=== PATIENT | female | born 1970 | race Caucasian/White ===

== ENCOUNTER 2018-09-02 10:33 | Observation (INO) | payer OTHER ==
[~2018-09-02] VITALS: Ht 170.2 cm; Wt 81.2 kg
[2018-09-02] MEDS ORDERED: BENADRYL25 MG PO (10:47)
[2018-09-03] MEDS ORDERED: FAMOTIDINE20 MG PO (09:03)
[2018-09-03] MEDS ORDERED: SUCRALFATE1 GM PO (09:04)
--- NOTE | 2018-09-03 09:16 | EKG ---
[facility] [address] [facility] [place], [place] [address] Signed Normal sinus rhythm Normal ECG No previous ECGs available Confirmed by CANDIE ANDREW MD ([id number]) on 09/03/2018 9:16:04 AM Electronically Signed By: CANDIE ANDREW MD 09/03/18 0916 PATIENT NAME: CAROLINA MONK Electrocardiogram DATE OF : 66 PHYSICIAN: CANDIE ANDREW MD REPORT #: [id number] REPORT IS CONFIDENTIAL AND NOT TO BE RELEASED WITHOUT AUTHORIZATION
== END 2018-09-03 10:12 | disposition home or self-care (01) ==
LOC: ED 10:33 → MS 10:35
PROVIDERS: ADMIT Internal Medicine
DX: R07.89 Other chest pain (principal); K21.9 Gastro-esophageal reflux disease without esophagitis; R10.13 Epigastric pain; G43.909 Migraine, unspecified, not intractable, without status migrainosus; Z88.5 Allergy status to narcotic agent; Z87.891 Personal history of nicotine dependence; Z79.899 Other long term (current) drug therapy; Z82.49 Family history of ischemic heart disease and other diseases of the circulatory system
CPT/HCPCS: 36415; 71045; 75571; 80053; 83690; 84484; 85025; 85379; 93005; 93010; 96361; 96374; 96375; 99285-25; C9113; G0378; J2405; J7030

== ENCOUNTER 2019-01-26 09:03 | Day surgery (SDC) | payer OTHER ==
[~2019-01-26] VITALS: Ht 170.2 cm; Wt 81.7 kg
[~2019-01-26 09:03] MED LIST: BENADRYL25 MG PO; FAMOTIDINE20 MG PO; SUCRALFATE1 GM PO
--- NOTE | 2019-01-26 10:30 | NUR ---
PT IS ALERT, ORIENTED AND SUPPORTED BY HER SIS. IN LAW [place]. THEY BOTH ARE PLEASANT, HAD FEW QUESTIONS AND PT DID REQUEST PRAYER. WILL FOLLOW NEEDED
--- NOTE | 2019-01-26 11:44 | NUR ---
01/26/19 Trinh4 Shannan Iyer 1139-PATIENT ARRIVED TO PACU ON 2L NC AWAKE DROWSY DENIES PAIN OR NAUSEA. RR EVEN ENCOURAGED TO PASS GAS. IVF INFUSING. PATIENT DOZES BACK TO SLEEP.
--- NOTE | 2019-01-26 21:11 | OR ---
[facility] [address] [place], [place] [address] Signed DATE OF OPERATION: 01/26/2019 SURGEON: Park Landon MD PREOPERATIVE DIAGNOSES: 1. Severe odynophagia, progressive. 2. Diarrhea. 3. Recent finding of abnormal gluten enteropathy panel. POSTOPERATIVE DIAGNOSES: 1. Moderately severe duodenitis and antral gastritis. 2. No obvious severe esophagitis, but changes suggestive of eosinophilic esophagitis (felinization of the esophagus). 3. Normal-appearing colon. PROCEDURES PERFORMED: 1. Esophagogastroduodenoscopy with biopsy. 2. Total colonoscopy to cecum with biopsy of cecum and rectum. ANESTHESIA: Intravenous sedation, fentanyl 200 mcg and Versed 10 mg. INDICATION: This 48-year-old white woman is a patient of Dr. Willingham and was urgently seen for rather progressive and severe odynophagia. She has pain upon swallowing to both liquids and solids. She also has significant epigastric pain. She additionally has some diarrhea, but no blood per rectum or hematemesis. She has been taking Prilosec with marginal if any benefit. Notably, she was hospitalized in August 2018, with severe substernal and epigastric pain. A cardiac workup was normal. She was initially treated with Protonix and Carafate, most recently just Protonix, but has severe pain once again. She is admitted to undergo upper endoscopy and colonoscopy to better characterize her problem, understanding risks of bleeding, infection, and perforation. FINDINGS: Upper endoscopy confirmed marked duodenitis but no sign of ulceration. There was some pre-pyloric antral gastritis. The flap valve was reasonably good. There is no sign of stricture. There is no obvious esophagitis grossly, but she did have felinization of the esophagus suggestive of eosinophilic esophagitis. There were blunted villi of the second and bulbar portions of the duodenum. Electronically Signed By: PARK LANDON MD 01/26/192110 PATIENT NAME: CAROLINA MONK OPERATIVE REPORT DATE OF : 66 REPORT #: [id number] PHYSICIAN: PARK LANDON MD PCP: TERESA WILLINGHAM MD REPORT IS CONFIDENTIAL AND NOT TO BE RELEASED WITHOUT AUTHORIZATION [facility] [address] [place], [place] [address] Signed As regard to colonoscopy, the prep was good and complete colonoscopy was undertaken to the cecum. There was no sign of polyps, diverticular formation, colitis, or cancer. Biopsies were taken of the cecum and rectum to assess for occult colitis. DESCRIPTION OF PROCEDURE: The patient was brought to the endoscopy suite and placed in lateral decubitus position after undergoing topical Hurricaine spray hypopharyngeal anesthesia. A bite block was placed. Full cardiopulmonary monitoring was maintained. An Olympus video upper endoscope was passed in the hypopharynx. Vocal cords were normal. Scope was advanced to the esophagus throughout its length, showed no sign of ulceration or esophagitis as had been considered possible. There was no Booker's epithelium. Scope was easily passed into the stomach, which was insufflated. There was some bile in the stomach and mild pre-pyloric antral gastritis but no sign of ulceration. The scope was passed into the duodenum where marked inflammatory changes of the duodenal bulb and second portion were noted. The scope was advanced as far as possible and allow for biopsy of jejunum and withdrawn to allow for more proximal duodenal biopsies. Careful withdrawal of scope to the antrum showed pre-pyloric erosive changes, but no deep ulceration. Biopsies were obtained there. CLOtest was ultimately found to be negative one-half hour following procedure. The scope was retroflexed showing no sign of profound hiatal hernia or anything of that sort. The scope was withdrawn to the distal esophagus where normal esophageal mucosa was reaffirmed. Biopsies were taken. The scope was carefully withdrawn showing no sign of Booker's epithelium or ulcerations. Biopsies were taken of the midesophagus as the appearance was that of a corrugated or feline type esophagus to some degree. Suspicion is thus maintained for possible eosinophilic esophagitis, possibly associated with underlying celiac disease. The scope was removed and plans made for colonoscopy. The table was rotated and additional sedation given. Digital rectal examination was normal. An Olympus video colonoscope was passed in the rectum and manipulated throughout the colon, ultimately into the cecum. The ileocecal valve and appendiceal orifice were normal. Scope was manipulated to allow for biopsy of the cecum. Careful withdrawal of scope in the remaining colon showed no sign of abnormality. Biopsies were then taken of the rectum. Scope was removed. The patient was taken to recovery room in good condition. 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 Gluten free diet will be initiated right away despite awaiting pathology report confirmation regarding the duodenum. Her odynophagia, which has been quite profound was previously well managed Electronically Signed By: PARK LANDON MD 01/26/19 7936 PATIENT NAME: CAROLINA MONK OPERATIVE REPORT DATE OF : 66 REPORT #: [id number] PHYSICIAN: PARK LANDON MD PCP: TERESA WILLINGHAM MD REPORT IS CONFIDENTIAL AND NOT TO BE RELEASED WITHOUT AUTHORIZATION [place] [id number] Signed with Carafate. This will be initiated. She may have eosinophilic esophagitis manifesting not so much as dysphagia but rather pain. We will await biopsies on that basis. If that is found, then budesonide solution may be a consideration. PLAN: She will see us back in the office in about four weeks. She will call Tuesday to get appointment set up. In the meantime, initiate gluten-free diet and restart Carafate slurry. MD SHAILA Kelley/AMANDAL /[id number] cc: Teresa Willingham MD Copies: ~ Electronically Signed By: PARK LANDON MD 01/26/19 2111 PATIENT NAME: CAROLINA MONK OPERATIVE REPORT DATE OF : 66 REPORT #: [id number] PHYSICIAN: PARK LANDON MD PCP: TERESA WILLINGHAM MD REPORT IS CONFIDENTIAL AND NOT TO BE RELEASED WITHOUT AUTHORIZATION
== END 2019-01-26 12:45 | disposition home or self-care (01) ==
LOC: OPS 09:03 → DS 09:03 → OPS 10:45 → DS 11:30 → OPS 12:45
PROVIDERS: Surgery
PROC: 0DBA8ZX Excision of Jejunum, Via Natural or Artificial Opening Endoscopic, Diagnostic (ICD-10-PCS; 2019-01-26)
PROC: 0DBH8ZX Excision of Cecum, Via Natural or Artificial Opening Endoscopic, Diagnostic (ICD-10-PCS; 2019-01-26)
PROC: 0DB38ZX Excision of Lower Esophagus, Via Natural or Artificial Opening Endoscopic, Diagnostic (ICD-10-PCS; 2019-01-26)
PROC: 0DBP8ZX Excision of Rectum, Via Natural or Artificial Opening Endoscopic, Diagnostic (ICD-10-PCS; 2019-01-26)
PROC: 0DB98ZX Excision of Duodenum, Via Natural or Artificial Opening Endoscopic, Diagnostic (ICD-10-PCS; principal; 2019-01-26 10:45)
PROC: 0DB78ZX Excision of Stomach, Pylorus, Via Natural or Artificial Opening Endoscopic, Diagnostic (ICD-10-PCS; 2019-01-26 10:45)
DX: K52.9 Noninfective gastroenteritis and colitis, unspecified (principal); K29.50 Unspecified chronic gastritis without bleeding; K29.80 Duodenitis without bleeding; K21.0 Gastro-esophageal reflux disease with esophagitis; J45.909 Unspecified asthma, uncomplicated; D64.9 Anemia, unspecified; Z88.5 Allergy status to narcotic agent; Z87.891 Personal history of nicotine dependence
CPT/HCPCS: 99153; G0500; J2250; J3010; J7120

== ENCOUNTER 2019-08-16 18:25 | Emergency (ER) | payer OTHER ==
[~2019-08-16] VITALS: Ht 170.2 cm; Wt 74.8 kg
--- OUTSIDE RECORDS SUMMARY | ~2019-08-16 | XMS | Encounter Summary ---
Demographics + + + | Address | [address] | | | [place] [address] | + + + | Home Phone | | + + + | Preferred Language | Unknown | + + + | Marital Status | | + + + | Quaker Affiliation | Unknown | + + + | Race | Unknown | + + + | Ethnic Group | Unknown | + + + Author + + + | Author | [facility] | | | and [place] | + + + | Organization | [facility] | | | and [place] [...] [place] | | | | | [address] | | + + + + + Care Team Providers + +------+ + | Care Wrapper Stemmer Operator Name | Role | Phone | + +------+ + | Ben Valdes DO | PCP | | + +------+ + Reason for Visit Auth/Cert +--------+--------+ + + + + | Status | Reason | Specialty | Diagnoses / | Referred By | Referred To | | | | | Procedures | Contact | Contact | +--------+--------+ + + + + | Closed | | Radiation | | | [facility] | | | | Oncology | | | Radiation | | | | | | | Oncology [address] | | | | | | | [address] | | | | | | | [place], | | | | | | | [place] [address] | | | | | | | Phone: | | | | | | | [phone] | | | | | | | Fax: | | | | | | | [phone] | +--------+--------+ + + + + Encounter Details +--------+ + + + + | Date | Type | Department | Care Team | Description | +--------+ + + + + | 04/23/ | Hospital | [facility] | [facility] | | | 2014 | Encounter | MED CTR RADIATION | MD Barbi [address] | | | | | ONCOLOGY [address] | [place] [address] | | | | | [place], | [address] | | | | | [place] [address] | | | | | | [phone] | | | +--------+ + + + [...]
--- OUTSIDE RECORDS SUMMARY | ~2019-08-16 | XMS | Clinical Summary ---
Demographics + + + | Address | [address] | | | [place] [address] | + + + | Home Phone | | + + + | Preferred Language | Unknown | + + + | Marital Status | | + + + | Taoist Affiliation | Unknown | + + + | Race | Unknown | + + + | Ethnic Group | Unknown | + + + Author + + + | Author | [facility] | | | and [place] | + + + | Organization | [facility] | | | and [place] [...] [place] | | | | | [address] | | + + + + + Care Team Providers + +------+ + | Care Jack Of All Trades Name | Role | Phone | + +------+ + | No, Physician | PCP | Unavailable | + +------+ + Allergies + + + +--------+ + | Active Allergy | Reactions | Severity | Noted | Comments | | | | | Date | | + + + +--------+ + | Codeine | | | | Other reaction(s): | | | | | | Vomiting | + + + +--------+ + Medications + + + +---------+------+------+-------+ | Medication | Sig | Dispensed | Refills | Star | End | Statu | | | | | | t | Date | s | | | | | | Date | | | + + + +---------+------+------+-------+ | fluticasone | 1 spray by Nasal | 15.8 mL | 1 | 01/0 | | Activ | | (FLONASE) 50 | route 2 times daily. | | | 2/20 | | e | | mcg/nasal spray | | | | 19 | | | + + + +---------+------+------+-------+ Active Problems + + + | Problem | Noted Date | + + + | Acute bronchitis | 08/09/2018 | + + + | Acute laryngopharyngitis | 08/09/2018 | + + + | Bursitis of shoulder | 08/09/2018 | + + + | Dysfunction of eustachian tube | 08/09/2018 | + + + | Granulomatosis | 08/09/2018 | + + + | Influenza | 08/09/2018 | + + + | Low back pain | 08/09/2018 | + + + | Maxillary sinusitis | 08/09/2018 | + + + | Menopausal syndrome | 08/09/2018 | + + + | Neoplasm of uncertain behavior of skin of abdomen | 08/09/2018 | + + + | Sprain of anterior cruciate ligament of knee | 08/09/2018 | + + + | Sprain of medial collateral ligament of knee | 08/09/2018 | + + + | Supraspinatus tendinitis | 08/09/2018 | + + + | Tear of medial meniscus of knee | 08/09/2018 | + + + | Tendinitis | 11/11/2011 | + + + | Thyroid nodule | 10/13/2011 | + + + | Abnormal weight gain | 09/13/2011 | + + + | Insomnia | 09/13/2011 | + + + | Stress | 09/13/2011 | + + + | Hip pain | 12/30/2010 | + + + | Lumbar sprain | 12/30/2010 | + + + | Contact dermatitis | 12/07/2010 | + + + | Basal cell carcinoma of skin | 10/15/2010 | + + + | Migraine | 08/26/2010 | + + + | Neck sprain | 08/26/2010 | + + + | Acute serous otitis media | 06/15/2010 | + + + | Sprain of rotator cuff capsule | 06/15/2010 | + + + | Allergic rhinitis due to pollen | 05/26/2010 | + + + | Depressive disorder | 05/26/2010 | + + + | Herpes zoster | 05/26/2010 | + + + | Shoulder pain | 05/09/2010 | + + + Social History + +-------+ +--------+------+ | Tobacco Use | Types | Packs/Day | Years | Date | | | | | Used | | + +-------+ +--------+------+ | Never Smoker | | | | | + +-------+ +--------+------+ + +---+---+---+ | Smokeless Tobacco: | | | | | Never Used | | | | + +---+---+---+ + + + | Sex Assigned at [...] recent travel history available. | + + Last Filed Vital Signs + + + + + | Vital Sign | Reading | Time Taken | Comments | + + + + + | Blood Pressure | 127/80 | 08/09/2018 9:47 AM | | | | | PST | | + + + + + | Pulse | 81 | 08/09/2018 9:47 AM | | | | | PST | | + + + + + | Temperature | 36.4 C (97.5 F) | 08/09/2018 9:47 AM | | | | | PST | | + + + + + | Respiratory Rate | 16 | 08/09/2018 9:47 AM | | | | | PST | | + + + + + | Oxygen Saturation | 99% | 08/09/2018 9:47 AM | | | | | PST | | + + + + + | Inhaled Oxygen | - | - | | | Concentration | | | | + + + + + | Weight | 83.1 kg (183 lb 3.2 | 08/09/2018 9:47 AM | | | | oz) | PST | | + + + + + | Height | 170.2 cm (5' 7") | 08/09/2018 9:47 AM | | | | | PST | | + + + + + | Body Mass Index | 28.69 | 08/09/2018 9:47 AM | | | | | PST | | + + + + + Plan of Treatment + + + + + | Health Maintenance | Due Date | Last Done | Comments | + + + + + | Vaccine: | | | | | Dtap/Tdap/Td (1 - | 0 | | | | Tdap) | | | | + + + + + | Cervical Cancer | | | | | Screening (Pap) | 9 | | | + + + + + | Breast Cancer | | | | | Screening | 4 | | | + + + + + | Colorectal Cancer | | | | | Screening | 9 | | | | (Colonoscopy) | | | | + + + + + | Vaccine: Zoster (1 | | | | | of 2) | 9 | | | + + + + + | Vaccine: Influenza | | | | | (#1) | 9 | | | + + + + + Results Not on filefrom Last 3 Months Insurance + +--------+ +--------+ +---------+------+ | Payer | Benefi | Subscriber | Effect | Phone | Address | Type | | | t Plan | ID | irma | | | | | | / | | Dates | | | | | | Group | | | | | | + +--------+ +--------+ +---------+------+ | [employer] [facility] | PHP | [id number] | 01/07/20 | [phone] | | PPO | | PLAN | PEBB | | 10-Pre | 5 | | | | | PROV | | sent | | | | | | CHOICE | | | | | | + +--------+ +--------+ +---------+------+ | [facility] | PHP | [id number] | 01/07/20 | [phone] | | PPO | | PLAN | PEBB | | 10-Pre | 5 | | | | | STATEW | | sent | | | | | | KEVIN | | | | | | + +--------+ +--------+ +---------+------+ + +--------+ +--------+ + + | Guarantor Name | Accoun | Relation to | Date | Phone | Billing Address | | | t Type | Patient | of | | | | | | | | | | + +--------+ +--------+ + + | Cindy Mitchell | Person | Self | [birth year] | [address] | | | al/Fam | | 1971 | [phone] | [place] [address] | | | [place]oyd | | | 0 (Home) | | | | | | | [phone] | | | | | | | 0 (Work) | | + +--------+ +--------+ + + Advance Directives + + + + + | Type | Date Recorded | Patient | Explanation | | | | Public Safety Dispatcher | | + + + + + | Power of | | | | | Yarn Man | | | | + + + + + | Advance | | | | | Directive | | | | + + + + +
--- OUTSIDE RECORDS SUMMARY | ~2019-08-16 | XMS | Encounter Summary ---
Demographics + + + | Address | [address] | | | [place] [address] | + + + | Home Phone | | + + + | Preferred Language | Unknown | + + + | Marital Status | | + + + | Catholic Affiliation | Unknown | + + + | Race | Unknown | + + + | Ethnic Group | Unknown | + + + Author + + + | Author | [facility] | | | and [place] | + + + | Organization | [facility] | | | and [place] [...] [place] | | | | | [address] | | + + + + + Care Team Providers + +------+ + | Care Chief Internal Auditor Name | Role | Phone | + [...] | | | [facility]Y CL[facility] [address] | [place], [place] | | | | | [address] | [address] | | | | | [place] [address] | | | | | | [phone] | | | +--------+ + + + [...]
--- OUTSIDE RECORDS SUMMARY | ~2019-08-16 | XMS | Encounter Summary ---
Demographics + + + | Address | [address] | | | [place] [address] | + + + | Home Phone | | + + + | Preferred Language | Unknown | + + + | Marital Status | | + + + | Advent Affiliation | Unknown | + + + | Race | Unknown | + + + | Ethnic Group | Unknown | + + + Author + + + | Author | [facility] | | | and [place] | + + + | Organization | [facility] | | | and [...] [place] | | | | | [address] | | + + + + + Care Team Providers + +------+ + | Care Balance Truer Name | Role | Phone | + +------+ + | Ben Valdes DO | PCP | | + +------+ + Encounter Details +--------+ + + + + | Date | Type | Department | Care Team | Description | +--------+ + + + + | 05/13/ | Hospital | [facility] | [facility] | | | 2014 | Encounter | MED CTR RADIATION | MD Barbi [address] | | | | | ONCOLOGY [address] [place], [place] | | | | | [place], | [address] | | | | | [place] [address] | | | | | | [phone] | | | +--------+ + + + [...]
--- OUTSIDE RECORDS SUMMARY | ~2019-08-16 | XMS | Encounter Summary ---
Demographics + + + | Address | [address] | | | [place] [address] | + + + | Home Phone | | + + + | Preferred Language | Unknown | + + + | Marital Status | | + + + | Church Affiliation | Unknown | + + + | Race | Unknown | + + + | Ethnic Group | Unknown | + + + Author + + + | Author | [facility] | | | and [place] | + + + | Organization | [facility] | | | and [...] [place], [place] | | | | | [address] | | + + + + + Care Team Providers + +------+ + | Care Wire Communications Engineer Name | Role | Phone | + +------+ + | Ben Valdes DO | PCP | | + +------+ + Reason for Referral Diagnostic/Screening (Routine) +--------+--------+ + + + + | Status | Reason | Specialty | Diagnoses / | Referred By | Referred To | | | | | Procedures | Contact | Contact | +--------+--------+ + + + + | Closed | | Radiology | Diagnoses | Leon | [address] | | | | | Keloid | [facility] | Jolene Dumont | | | | | Procedures | MD [address] | [place], | | | | | CT Treatment | [address] | [place] [address] | | | | | Plan | [place], | Phone: | | | | | Complex | [place] [address] | [phone] | | | | | | Phone: | Fax: | | | | | | [phone] | [phone] | | | | | | Fax: | | | | | | | [phone] | | +--------+--------+ + + + + Encounter Details +--------+ + + + + | Date | Type | Department | Care Team | Description | +--------+ + + + + | 05/12/ | Orders Only | [facility] | [facility] | Carley (Primary Dx) | | 2014 | | MED CTR RADIATION | MD Barbi [address] | | | | | ONCOLOGY [address] [facility] [place] | | | | | [place], | [address] | | | | | [place] [address] | | | | | | [phone] | | | +--------+ + + + [...] Not on filedocumented as of this encounter Results CT Treatment Plan Complex (05/13/2015 9:44 AM PDT) + + | Specimen | + + | | + + + + + | Narrative | Performed At | + + + | No Radiologist interpretation, please see Chart Review. | [facility] | + + + + +---------+ + + | Performing | Address | City/State/Zipcode | Phone Number | | Organization | | | | + +---------+ + + | [facility] | | | | + +---------+ + + documented in this encounter Visit Diagnoses + + | Diagnosis | + + | Keloid - Primary Keloid scar | + + documented in this encounter"
--- OUTSIDE RECORDS SUMMARY | ~2019-08-16 | XMS | Encounter Summary ---
Demographics + + + | Address | [address] | | | [place] [address] | + + + | Home Phone | | + + + | Preferred Language | Unknown | + + + | Marital Status | | + + + | Episcopal Affiliation | Unknown | + + + | Race | Unknown | + + + | Ethnic Group | Unknown | + + + Author + + + | Author | [facility] | | | and [place] | + + + | Organization | [facility] | | | and [...] [place] | | | | | [address] | | + + + + + Care Team Providers + +------+ + | Care Strategic Planning Consultant Name | Role | Phone | + [...] | | | ONCOLOGY CLINIC [address] | [place], [place] | | | | | [address] | [address] | | | | | [place] [address] | | | | | | [phone] | | | +--------+ + + + [...]
--- OUTSIDE RECORDS SUMMARY | ~2019-08-16 | XMS | Encounter Summary ---
Demographics + + + | Address | [address] | | | [place] [address] | + + + | Home Phone | | + + + | Preferred Language | Unknown | + + + | Marital Status | | + + + | Yazdanism Affiliation | Unknown | + + + | Race | Unknown | + + + | Ethnic Group | Unknown | + + + Author + + + | Author | [facility] | | | and [place] | + + + | Organization | [facility] | | | and [place] | + + + | Address | Unknown | + + + | Phone | Unavailable | + + + Support + + + + + | Name | Relationship | Address | Phone | + + + + + | Jsoe Mitchell | ECON | [address] | | | | | [place] | | | | | [address] | | + + + + + Care Team Providers + +------+ + | Care Manager Pipeline Name | Role | Phone | + +------+ + | Ben Valdes DO | PCP | | + +------+ + Reason for Visit +--------+ + | Reason | Comments | +--------+ + | Other | | +--------+ + Encounter Details +--------+ + + + + | Date | Type | Department | Care Team | Description | +--------+ + + + + | 04/10/ | Telephone | [facility] | [facility] | Other | | 2014 | | MED CTR MEDICAL | MD Barbi [address] | | | | | ONCOLOGY CLINIC [address] | [place], [place] | | | | | [address] | [address] | | | | | [place] [address] | | | | | | [phone] | | | +--------+ + + + [...]
--- OUTSIDE RECORDS SUMMARY | ~2019-08-16 | XMS | Clinical Summary ---
Demographics + + + | Address | [address] | | | [place] [address] | + + + | Home Phone | | + + + | Preferred Language | Unknown | + + + | Marital Status | | + + + | Rastafarian Affiliation | Unknown | + + + | Race | Unknown | + + + | Ethnic Group | Unknown | + + + Author + + + | Author | [facility] [place] [facility] | | | and [place] | + + + | Organization | [facility] [place] [facility] | | | and [place] | [...] [place] | | | | | [address] | | + + + + + Care Team Providers + +------+ + | Care Magistrate Assistant Name | Role | Phone | + [...] | | + +--------+ +--------+ +---------+------+ | [employer] | PHP | [id number] | 01/07/20 | [phone] | | PPO | | PLAN | PEBB | | 10-Pre | 5 | | | | | PROV | | sent | | | | | | CHOICE | | | | | | + +--------+ +--------+ +---------+------+ | [facility] | PHP | [phone] | 01/07/20 | [phone] | | PPO | | PLAN | [...] | 1971 | [phone] | [place] [address] | | | [place] | | | 0 (Home) | | | | | | | [phone] | | | | | | | 0 (Work) | | + +--------+ +--------+ + + Advance Directives + + + + + | Type | Date Recorded | Patient | Explanation | | | | Multimedia Assistant | | + + + + + | Power of | | | | | Manufacturing Technology Analyst | | | | + + + + + | Advance | | | | | Directive | | | | + + + + +
--- OUTSIDE RECORDS SUMMARY | ~2019-08-16 | XMS | Encounter Summary ---
Demographics + + + | Address | [address] | | | [place] [address] | + + + | Home Phone | | + + + | Preferred Language | Unknown | + + + | Marital Status | | + + + | Zoroastrian Affiliation | Unknown | + + + | Race | Unknown | + + + | Ethnic Group | Unknown | + + + Author + + + | Author | [facility] | | | and [place] | + + + | Organization | [facility] | | | and [place] | [...] [place] | | | | | [address] | | + + + + + Care Team Providers + +------+ + | Care Physical Chemistry Professor Name | Role | Phone | [...] [place] | unspecified | | | | [address] | [address] | seasonality, | | | | [phone] | | unspecified trigger; | | | [...] are examples of irritants. Date Last Reviewed: 04/08/201619997991-0709 [employer] [place] [address], [place] [address]. All righ ts reserved. This information is [...] allergies, talk to your doctor or health acute care nursing assistant before using it for a longer time. Ask your doctor or health acute care nursing assistant if you have any questions. Talk to your computer engineering technician regarding the use of this medicine in children. Special care may be needed. Some products have been used for allergies in children as young as 2 years. After 2 months of daily use without a prescription in a child, talk to your computer engineering technician before u sing it for a longer time. Use of this medicine for nasal polyps is not approved in children . What side effects may I notice from receiving this medicine? Side effects that you should report to your doctor or health acute care nursing assistant as soon as p ossible: allergic reactions [...] attention (report to your doctor or health acute care nursing assistant if they continue or are bothersome): burning [...] this medicine? Visit your doctor or health acute care nursing assistant for regular checks on your progress. Some sym ptoms may improve within 12 hours after starting use. Check with your doctor or health acute care nursing assistant if there is no improvement in your [...]
--- OUTSIDE RECORDS SUMMARY | ~2019-08-16 | XMS | Encounter Summary ---
Demographics + + + | Address | [address] | | | [place] [address] | + + + | Home Phone | | + + + | Preferred Language | Unknown | + + + | Marital Status | | + + + | Scientology Affiliation | Unknown | + + + | Race | Unknown | + + + | Ethnic Group | Unknown | + + + Author + + + | Author | [facility] | | | and [place] | + + + | Organization | [facility] | | | and [place] | [...] [place] | | | | | [address] | | + + + + + Care Team Providers + +------+ + | Care Aviation Tactical Readiness Officer Name | Role | Phone | + +------+ + | Ben Valdes DO | PCP | | + +------+ + Encounter Details +--------+ + + + + | Date | Type | Department | Care Team | Description | +--------+ + + + + | 05/13/ | Hospital | [facility] | [facility] | | | 2014 | Encounter | MED CTR RADIATION | MD Barbi [address] | | | | | ONCOLOGY [address] | [address] [place], [place] | | | | | [place], | [address] | | | | | [place] [address] | | | | | | [phone] | | | +--------+ + + + [...]
--- OUTSIDE RECORDS SUMMARY | ~2019-08-16 | XMS | Encounter Summary ---
Demographics + + + | Address | [address] | | | [place] [address] | + + + | Home Phone | | + + + | Preferred Language | Unknown | + + + | Marital Status | | + + + | Protestant Affiliation | Unknown | + + + | Race | Unknown | + + + | Ethnic Group | Unknown | + + + Author + + + | Author | [facility] | | | and [place] | + + + | Organization | [facility] | | | and [...] [place], [place] | | | | | [address] | | + + + + + Care Team Providers + +------+ + | Care Plater Hot Dip Name | Role | Phone | + [...] | Procedures | MD [address] | [place], | | | | | CT Treatment | [address] | [place] [address] | | | | | Plan | [place], | Phone: | | | | | Complex | [place] [address] | [phone] | | | | | | Phone: | Fax: | | | | | | [phone] | [phone] | | | | | | Fax: | | | | | | | [phone] | | +--------+--------+ + + + + [...] | | ONCOLOGY [address] [facility] [place] | | | | | [place], | [address] | | | | | [place] [address] | | | | | | [phone] | | | +--------+ + + + [...]
--- OUTSIDE RECORDS SUMMARY | ~2019-08-16 | XMS | Encounter Summary ---
Demographics + + + | Address | [address] | | | [place] [address] | + + + | Home Phone | | + + + | Preferred Language | Unknown | + + + | Marital Status | | + + + | Shinto Affiliation | Unknown | + + + | Race | Unknown | + + + | Ethnic Group | Unknown | + + + Author + + + | Author | [facility] | | | and [place] | + + + | Organization | [facility] | [...] [place] | | | | | [address] | | + + + + + Care Team Providers + +------+ + | Care Rn Traveling Name | Role | Phone | + [...] [place] | unspecified | | | | [address] | [address] | seasonality, | | | | [phone] | | unspecified trigger; | | | [...] are examples of irritants. Date Last Reviewed: 04/08/201619992395-0311 [employer]. [address] [place] [address], [place] [address]. All righ ts reserved. This information is [...] allergies, talk to your doctor or health ambulatory care nurse before using it for a longer time. Ask your doctor or health ambulatory care nurse if you have any questions. Talk to your agricultural service technician regarding the use of this medicine in children. Special care may be needed. Some products have been used for allergies in children as young as 2 years. After 2 months of daily use without a prescription in a child, talk to your agricultural service technician before u sing it for a longer time. Use of this medicine for nasal polyps is not approved in children . What side effects may I notice from receiving this medicine? Side effects that you should report to your doctor or health ambulatory care nurse as soon as p ossible: [...] attention (report to your doctor or health ambulatory care nurse if they continue or are [...] this medicine? Visit your doctor or health ambulatory care nurse for regular checks on your progress. Some sym ptoms may improve within 12 hours after starting use. Check with your doctor or health ambulatory care nurse if there is no improvement [...] separate problems. First is a cough which ceelstino sanchez is been more chronic and she [...]
--- OUTSIDE RECORDS SUMMARY | ~2019-08-16 | XMS | Encounter Summary ---
Demographics + + + | Address | [address] | | | [place] [address] | + + + | Home Phone | | + + + | Preferred Language | Unknown | + + + | Marital Status | | + + + | Jain Affiliation | Unknown | + + + | Race | Unknown | + + + | Ethnic Group | Unknown | + + + Author + + + | Author | [facility] | | | and [place] | + + + | Organization | [facility] | | | and [place] [...] [place] | | | | | [address] | | + + + + + Care Team Providers + +------+ + | Care Industrial Relations Commissioner Name | Role | Phone | [...] | | | ONCOLOGY CLINIC [address] | [place], [place] | | | | | [address] | [address] | | | | | [place] [address] | | | | | | [phone] | | | +--------+ + + + [...]
--- OUTSIDE RECORDS SUMMARY | ~2019-08-16 | XMS | Encounter Summary ---
Demographics + + + | Address | [address] | | | [place] [address] | + + + | Home Phone | | + + + | Preferred Language | Unknown | + + + | Marital Status | | + + + | Anabaptist Affiliation | Unknown | + + + | Race | Unknown | + + + | Ethnic Group | Unknown | + + + Author + + + | Author | [facility] | | | and [place] | + + + | Organization | [facility] | | | and [...] [place], [place] | | | | | [address] | | + + + + + Care Team Providers + +------+ + | Care Sales Intern Name | Role | Phone | + [...] | Procedures | MD [address] | [place], | | | | | CT Treatment | [address] | [place] [address] | | | | | Plan | [place], | Phone: | | | | | Complex | [place] [address] | [phone] | | | | | | Phone: | Fax: | | | | | | [phone] | [phone] | | | | | | Fax: | | | | | | | [phone] | | +--------+--------+ + + + + [...] + + + + | 05/13/ | [facility] | [facility] | [facility] | [place] | | 2015 | Encounter | MED CTR [address] | MMD [address] | | | | | [place], | [place], [place] | | | | | [place] [address] | [address] | | | | | [phone] | | | +--------+ + + + [...]
--- OUTSIDE RECORDS SUMMARY | ~2019-08-16 | XMS | Encounter Summary ---
Demographics + + + | Address | [address] | | | [place] [address] | + + + | Home Phone | | + + + | Preferred Language | Unknown | + + + | Marital Status | | + + + | Cheondoism Affiliation | Unknown | + + + | Race | Unknown | + + + | Ethnic Group | Unknown | + + + Author + + + | Author | [facility] | | | and [place] | + + + | Organization | [facility] | | | and [place] [...] [place], [place] | | | | | [address] | | + + + + + Care Team Providers + +------+ + | Care Chili Maker Name | Role | Phone | + [...] | Procedures | MD [address] | [place], | | | | | CT Treatment | [address] | [place] [address] | | | | | Plan | [place], | Phone: | | | | | Complex | [place] [address] | [phone] | | | | | | Phone: | Fax: | | | | | | [phone] | [phone] | | | | | | Fax: | | | | | | | [phone] | | +--------+--------+ + + + + [...] + + + + | 05/13/ | [facility] | [facility] | [facility] | [place] | | 2015 | Encounter | MED CTR [address] | M[address] | | | | | [place], | [place], [place] | | | | | [place] [address] | [address] | | | | | [phone] | | | +--------+ + + + [...]
--- OUTSIDE RECORDS SUMMARY | ~2019-08-16 | XMS | Encounter Summary ---
Demographics + + + | Address | [address] | | | [place] [address] | + + + | Home Phone | | + + + | Preferred Language | Unknown | + + + | Marital Status | | + + + | Druze Affiliation | Unknown | + + + | Race | Unknown | + + + | Ethnic Group | Unknown | + + + Author + + + | Author | [facility] | | | and [place] | + + + | Organization | [facility] | [...] [place] | | | | | [address] | | + + + + + Care Team Providers + +------+ + | Care Utility Tech Name | Role | Phone | + [...] | | | | | | [address] | | | | | | | [place], | | | | | | | [place] [address] | | | | | | | Phone: | | | | | | | [phone] | | | | | | | Fax: | | | | | | | [phone] | +--------+--------+ + + + + Encounter Details +--------+ + + + + | Date | Type | Department | Care Team | Description | +--------+ + + + + | 04/23/ | Hospital | [facility] | [facility] | | | 2014 | Encounter | MED CTR RADIATION | MD Barbi [address] | | | | | ONCOLOGY [address] | [place] | | | | | [place], | [id number] | | | | | [place] [address] | | | | | | [phone] | | | +--------+ + + + [...]
--- NOTE | 2019-08-17 07:36 | EKG ---
[facility] [address] [place] [address] Signed Normal sinus rhythm Low voltage QRS Borderline ECG When compared with ECG of 02-SEP-2018 10:37, Nonspecific T wave abnormality now evident in Anterior leads Confirmed by CANDIE ANDREW MD ([id number]) on 08/17/2019 7:36:32 AM Electronically Signed By: CANDIE ANDREW MD 08/17/19 0736 PATIENT NAME: CAROLINA MONK Electrocardiogram DATE OF : 66 PHYSICIAN: CANDIE ANDREW MD REPORT #: [id number] REPORT IS CONFIDENTIAL AND NOT TO BE RELEASED WITHOUT AUTHORIZATION
== END 2019-08-16 21:16 | disposition home or self-care (01) ==
LOC: ED 18:25
DX: R10.9 Unspecified abdominal pain (principal); Z88.5 Allergy status to narcotic agent
CPT/HCPCS: 80053; 81001; 83690; 83735; 85025; 93005; 93010; 96361; 96374; 96375; 99284-25; J2270; J2405; J7030

== ENCOUNTER 2020-01-03 20:20 | Emergency (ER) | payer OTHER ==
[~2020-01-03] VITALS: Ht 170.2 cm; Wt 76.2 kg
--- OUTSIDE RECORDS SUMMARY | ~2020-01-03 | XMS | Encounter Summary ---
Demographics + + + | Address | [address] | | | [place] [address] | + + + | Home Phone | | + + + | Preferred Language | Unknown | + + + | Marital Status | | + + + | Quaker Affiliation | Unknown | + + + | Race | Unknown | + + + | Ethnic Group | Unknown | + + + Author + + + | Author | [facility] | | | and [place] | + + + | Organization | [facility] | | | and [place] | + + + | Address | Unknown | + + + | Phone | Unavailable | + + + Support + + + + + | Name | Relationship | Address | Phone | + + + + + | Jose Mitchell | ECON | [address] | | | | | [place] | | | | | [address] | | + + + + + Care Team Providers + +------+ + | Care Spindle Setter Name | Role | Phone | + +------+ + | Ben Valdes DO | PCP | | + +------+ + Reason for Visit +--------+ + | Reason | Comments | +--------+ + | Other | | +--------+ + Encounter Details +--------+ + + + + | Date | Type | Department | Care Team | Description | +--------+ + + + + | 04/08/ | Telephone | [facility] | [facility] | Other | | 2014 | | MED CTR MEDICAL | MD Barbi [address] | | | | | ONCOLOGY CLINIC [address] | [place], [place] | | | | | [address] | [address] | | | | | [place] [address] | | | | | | [phone] | | | +--------+ + + + + Social History + +-------+ +--------+------+ | Tobacco Use | Types | Packs/Day | Years | Date | | | | | Used | | + +-------+ +--------+------+ | Never Assessed | | | | | + +-------+ +--------+------+ + + + | Sex Assigned at | Date Recorded | | | | + + + | Not on file | | + + + + + + + | Job Start Date | Occupation | Industry | + + + + | Not on file | Not on file | Not on file | + + + + + + + + | Travel History | Travel Start | Travel End | + + + + + + | No recent travel history available. | + + documented as of this encounter Plan of Treatment Not on filedocumented as of this encounter Visit Diagnoses Not on filedocumented in this encounter"
--- OUTSIDE RECORDS SUMMARY | ~2020-01-03 | XMS | Encounter Summary ---
Demographics + + + | Address | [address] | | | [place] [address] | + + + | Home Phone | | + + + | Preferred Language | Unknown | + + + | Marital Status | | + + + | Christian Affiliation | Unknown | + + + | Race | Unknown | + + + | Ethnic Group | Unknown | + + + Author + + + | Author | [facility] | | | and [place] | + + + | Organization | [facility] | | | and [place] | + + + | Address | Unknown | + + + | Phone | Unavailable | + + + Support + + + + + | Name | Relationship | Address | Phone | + + + + + | Jose Mitchell | ECON | [address] | | | | | [place] | | | | | [address] | | + + + + + Care Team Providers + +------+ + | Care Assembler Handbags Name | Role | Phone | + +------+ + | Ben Valdes DO | PCP | | + +------+ + Encounter Details +--------+ + + + + | Date | Type | Department | Care Team | Description | +--------+ + + + + | 05/13/ | Hospital | [facility] | [facility] | | | 2014 | Encounter | MED CTR RADIATION | MD Barbi [address] | | | | | ONCOLOGY [address] | [address] [place], [place] | | | | | [place], | [address] | | | | | [place] [address] | | | | | | [phone] | | | +--------+ + + + [...]
--- OUTSIDE RECORDS SUMMARY | ~2020-01-03 | XMS | Encounter Summary ---
Demographics + + + | Address | [address] | | | [place] [address] | + + + | Home Phone | | + + + | Preferred Language | Unknown | + + + | Marital Status | | + + + | Bahai Affiliation | Unknown | + + + | Race | Unknown | + + + | Ethnic Group | Unknown | + + + Author + + + | Author | [facility] | | | and [place] | + + + | Organization | [facility] | | | and [place]ana [...] [place] | | | | | [address] | | + + + + + Care Team Providers + +------+ + | Care Sourcing Analyst Name | Role | Phone | + +------+ + | No, Physician | PCP | Unavailable | + +------+ + Reason for Visit +--------+ + | Reason | Comments | +--------+ + | Cough | rm 7/ persistant cough x 2 wk, left knee pain | +--------+ + Encounter Details +--------+---------+ + + + | Date | Type | Department | Care Team | Description | +--------+---------+ + + + | 08/09/ | Office | [facility] | Martin Moss, | Cough (Primary Dx); | | 2019 | Visit | CARE [address] | MD [address] | Allergic rhinitis, | | | | [place], [place] | [place], [place] | unspecified | | | | [address] | [address] | seasonality, | | | | [phone] | | unspecified trigger; | | | | | | Acute pain of left | | | | | | knee | +--------+---------+ + + + Social History + +-------+ [...] + + documented as of this encounter Last Filed Vital Signs + + + [...] | | + + + + + documented in this encounter Patient Instructions Patient Instructions Martin Moss MD - 08/09/2018 9:45 AM PST Causes of Nasal Allergies Nasal allergies are most commonly caused by one or more of 4 kinds of allergens: pollen (wh ich causes seasonal allergies), house-dust mites, mold, and animals. Other substances, castellon d irritants, can bother the nose and make allergy symptoms worse. Pollen Plants reproduce by moving tiny grains of pollen from plant to plant. Some pollen is sushant d by bees, and some is blown by the wind. It s the wind-blown pollen that causes nasal all ergies. The amount of pollen in the air varies from season to season. House-dust mites House-dust mites are tiny bugs too small to see. They can live in mattresses, blankets, surya ffed toys, carpets, and curtains. The droppings of these mites are a common indoor cause of nasal allergies. Mold Mold loves dark, damp areas. It tends to grow in bathrooms, basements, refrigerators, and i n the soil of houseplants. Mold reproduces by sending tiny grains called spores into the air . If these spores are breathed in, they can cause a nasal allergic reaction. Animals Pets, such as cats, dogs, birds, horses, and rabbits, are common causes of nasal allergies. Flakes of skin (dander), saliva left on fur when an animal cleans itself, urine in litter b oxes and cages, and feathers can all cause nasal allergies. Irritants make allergies worse Although irritants don t cause nasal allergies, they can make allergy symptoms worse. Cig arette smoke, perfume, aerosol sprays, smoke from wood stoves or fireplaces, car exhaust, an d strong odors are examples of irritants. Date Last Reviewed: 04/08/[id number] [employer]. [address] [place] [address], [place] [address]. All righ ts reserved. This information is not intended as a substitute for professional medical care. Always follow your healthcare professional's instructions. Fluticasone nasal spray Brand Names: Flonase, Flonase Allergy Relief, Flonase Sensimist, XHANCE What is this medicine? FLUTICASONE (floo TIK a sone) is a corticosteroid. This medicine is used to treat the sympt oms of allergies like sneezing, itchy red eyes, and itchy, runny, or stuffy nose. This medic ine is also used to treat nasal polyps. How should I use this medicine? This medicine is for use in the nose. Follow the directions on your product or prescription label. This medicine works best if used at regular intervals. Do not use more often than di rected. Make sure that you are using your nasal spray correctly. After 6 months of daily use for allergies, talk to your doctor or health intensive care nurse before using it for a longer time. Ask your doctor or health intensive care nurse if you have any questions. Talk to your tongue carrier regarding the use of this medicine in children. Special care may be needed. Some products have been used for allergies in children as young as 2 years. After 2 months of daily use without a prescription in a child, talk to your tongue carrier before u sing it for a longer time. Use of this medicine for nasal polyps is not approved in children . What side effects may I notice from receiving this medicine? Side effects that you should report to your doctor or health intensive care nurse as soon as p ossible: allergic reactions like skin rash, itching or hives, swelling of the face, lips, or tong ue changes in vision crusting or sores in the nose nosebleed signs and symptoms of infection like fever or chills; cough; sore throat white patches or sores in the mouth or nose Side effects that usually do not require medical attention (report to your doctor or health intensive care nurse if they continue or are bothersome): burning or irritation inside the nose or throat cough headache unusual taste or smell What may interact with this medicine? certain antibiotics like clarithromycin and telithromycin certain medicines for fungal infections like ketoconazole, itraconazole, and voriconazol e conivaptan nefazodone some medicines for HIV vaccines What if I miss a dose? If you miss a dose, use it as soon as you remember. If it is almost time for your next dose , use only that dose and continue with your regular schedule. Do not use double or extra dos es. Where should I keep my medicine? Keep out of the reach of children. Store at room temperature between 15 and 30 degrees C (59 and 86 degrees F). Avoid exposure to extreme heat, cold, or light. Throw away any unused medicine after the expiration date. What should I tell my health care provider before I take this medicine? They need to know if you have any of these conditions: cataracts glaucoma infection, like tuberculosis, herpes, or fungal infection recent surgery on nose or sinuses taking a corticosteroid by mouth an unusual or allergic reaction to fluticasone, steroids, other medicines, foods, dyes, or preservatives or trying to get breast-feeding What should I watch for while using this medicine? Visit your doctor or health intensive care nurse for regular checks on your progress. Some sym ptoms may improve within 12 hours after starting use. Check with your doctor or health intensive care nurse if there is no improvement in your symptoms after 3 weeks of use. This medicine may increase your risk of getting an infection. Tell your doctor or health ca re professional if you are around anyone with measles or chickenpox, or if you develop sores or blisters that do not heal properly. NOTE:This sheet is a summary. It may not cover all possible information. If you have questi ons about this medicine, talk to your doctor, pharmacist, or health care provider. Copyright 2018 [employer] documented in this encounter Progress Notes Martin Moss MD - 08/09/2018 9:45 AM PSTFormatting of this note might be different fr om the original. Subjective: Patient ID: Cindy Mitchell is a 47 y.o. female.who presents today for Cough (rm 7/ per sistant cough x 2 wk, left knee pain) . HPI The patient is being seen today for 2 separate problems. First is a cough which celestino sanchez is been more chronic and she feels that it's going on worse for about 2 weeks. She has had no fevers. There is been a little tightness in the chest and shortness of breath at nayan es. Denies any history of asthma emphysema or chronic lung problems. She does not smoke. She does have history of allergies which tend to be worse in the summer. She has been aller gy tested in this past but does not recall what the results were. Tense he had some nasal c ongestion have a little discomfort in the ears at times. Has clear nasal discharge. She de nies any sinus pain or earaches this time. She takes Claritin on a regular basis and occasi onally takes Benadryl at nighttime. She's not been on any other treatment for this in the p ast. She has not had vaccine this year. Second problem is left knee pain. She has had surgery for torn meniscus on the right knee in the past but the left has not given her problems. Over the past week she's had problems with pain on the lateral aspect of the left knee. She's had no pops or crepitance that she is felt other than when she first felt the discomfort when raising up from being seated on t he floor. She often sits on the floor with her legs under her. She's had no previous injur y to this knee. There is been no swelling. Patient Active Problem List Diagnosis Abnormal weight gain Acute bronchitis Acute laryngopharyngitis Acute serous otitis media Allergic rhinitis due to pollen Basal cell carcinoma of skin Bursitis of shoulder Contact dermatitis Depressive disorder Dysfunction of eustachian tube Granulomatosis Herpes zoster Hip pain Influenza Insomnia Low back pain Lumbar sprain Maxillary sinusitis Menopausal syndrome Migraine Neck sprain Neoplasm of uncertain behavior of skin of abdomen Shoulder pain Sprain of anterior cruciate ligament of knee Sprain of medial collateral ligament of knee Sprain of rotator cuff capsule Stress Supraspinatus tendinitis Tear of medial meniscus of knee Tendinitis Thyroid nodule No past surgical history on file. Current Outpatient Prescriptions Medication Sig Dispense Refill fluticasone (FLONASE) 50 mcg/nasal spray 1 spray by Nasal route 2 times daily. 15.8 mL 1 No current facility-administered medications for this visit. She reports that she has never smoked. She has never used smokeless tobacco. Allergies Allergen Reactions Codeine Not Noted Other reaction(s): Vomiting Intolerance No active intolerances/contraindications Review of Systems Constitutional: Negative for chills, fever and malaise/fatigue. HENT: Positive for congestion and sore throat. Negative for ear pain and sinus pain. Respiratory: Positive for cough and sputum production. Negative for shortness of breath and wheezing. Cardiovascular: Positive for chest pain. Musculoskeletal: Positive for joint pain. Negative for back pain and falls. Skin: Negative for rash. Endo/Heme/Allergies: Negative. Objective: BP 127/80 | Pulse 81 | Temp 36.4 C (97.5 F) (Temporal) | Resp 16 | Ht 1.702 m (5' 7 ") | Wt 83.1 kg (183 lb 3.2 oz) | SpO2 99% | BMI 28.69 kg/m Physical Exam The patient is alert and appropriate. She does not appear to be acutely ill and has not hutton d any shortness of breath. She speaks in full sentences. The neck is supple with no adenop athy. Oral is with mild erythema of the posterior pharynx no swelling posterior nasal drip or exudates. Ears are with TMs visualized bilaterally with good light reflex and no erythem a or fluid. Face is nontender over the sinuses. Nose is with mildly swollen pink mucous me mbranes and clear discharge bilaterally. Lungs are clear to auscultation with good air move ment and no rales rhonchi or wheezes. Heart is regular rate and rhythm with no murmur or ta chycardia. The left knee is with no deformity and no swelling. There is no effusion in the joint. There is mild tenderness along the superior lateral aspect of the patella. He has normal range of motion of the left knee with no crepitance palpable. There is minimal tende rness over the lateral collateral ligament and there is no snaps or pops with range of motio n. The collateral ligaments are stable to stresses. Shanita's is negative. Mora's sign is negative. No results found for this or any previous visit (from the past 24 hour(s)). Assessment/Plan: Cindy was seen today for cough. Diagnoses and all orders for this visit: Cough Allergic rhinitis, unspecified seasonality, unspecified trigger Acute pain of left knee Other orders - fluticasone (FLONASE) 50 mcg/nasal spray; 1 spray by Nasal route 2 times daily. Cough is most likely due to nasal allergies and does not appear to be an infectious etiolog y at this time. She is to continue to use antihistamines and she is given a prescription fo r Flonase to try 1 spray each nostril twice daily for the next 2 weeks to see if it will hel p. If she develops fevers, colored sputum, appears to be worsening she should return for re check. For the knee I recommend that she not sit on the floor with her under her is that is probab ly putting some stress on the ligaments. There is also possibility she had a partial sublux ation of the patella go along with tenderness at the patella or possibly could have chondrom alacia patella as well. She can take ibuprofen as needed for the discomfort. If she has sn aps pops clicks or the knee is locking up on her she needs to be rechecked and considered fo r referral to orthopedics. Return if symptoms worsen or fail to improve.Electronically signed by MD oscar Calvin 08/09/2018 10:44 AM PSTdocumented in this encounter Plan of Treatment Not on filedocumented as of this encounter Visit Diagnoses + + | Diagnosis | + + | Cough - Primary | + + | Allergic rhinitis, unspecified seasonality, unspecified trigger | + + | Acute pain of left knee | + + documented in this encounter
--- OUTSIDE RECORDS SUMMARY | ~2020-01-03 | XMS | Encounter Summary ---
Demographics + + + | Address | [address] | | | [place] [address] | + + + | Home Phone | | + + + | Preferred Language | Unknown | + + + | Marital Status | | + + + | Temple Affiliation | Unknown | + + + | Race | Unknown | + + + | Ethnic Group | Unknown | + + + Author + + + | Author | [facility] | | | and [place] | + + + | Organization | [facility] | | | and [place] | + + + | Address | Unknown | + + + | Phone | Unavailable | + + + Support + + + + + | Name | Relationship | Address | Phone | + + + + + | Jose Mitchell | ECON | [address] | | | | | [place], [place] | | | | | [address] | | + + + + + Care Team Providers + +------+ + | Care Plasterer Apprentice Name | Role | Phone | + +------+ + | No, Physician | PCP | Unavailable | + +------+ + Encounter Details +--------+ + + + + | Date | Type | Department | Care Team | Description | +--------+ + + + + | 11/12/ | Imaging | [facility] | Provider, | | | 2019 | Exam | [facility] | [address] | | | | | IM[address]ING [address] | [address] | | | | | [address] | [place] [address] | | | | | [place] [address] | | | | | | [phone] | | | +--------+ + + + [...] Not on filedocumented as of this encounter Procedures + +--------+ + + + | Procedure Name | Priori | Date/Time | Associated Diagnosis | Comments | | | ty | | | | + +--------+ + + + | MRI KNEE LEFT WO | Routin | 10/03/2018 | | Results for this | | CONTRAST | e | 12:00 AM | | procedure are in the | | | | PST | | results section. | + +--------+ + + + documented in this encounter Results MRI Knee Left wo Contrast (10/03/2018 12:00 AM PST) + + | Specimen | + + | | + + + + + | Narrative | Performed At | + + + | External films for comparison only | [facility] | | | | | No results will be in the chart. | | + + + + +---------+ + + | Performing | Address | City/State/Zipcode | Phone Number | | Organization | | | | + +---------+ + + | [facility] | | | | + +---------+ + + documented in this encounter Visit Diagnoses Not on filedocumented in this encounter"
--- OUTSIDE RECORDS SUMMARY | ~2020-01-03 | XMS | Encounter Summary ---
Demographics + + + | Address | [address] | | | [place] [address] | + + + | Home Phone | | + + + | Preferred Language | Unknown | + + + | Marital Status | | + + + | Adventism Affiliation | Unknown | + + + | Race | Unknown | + + + | Ethnic Group | Unknown | + + + Author + + + | Author | [facility] | | | and [place] | + + + | Organization | [facility] | | | and [place] [...] [place] | | | | | [address] | | + + + + + Care Team Providers + +------+ + | Care Co Teacher Name | Role | Phone | + +------+ + | Ben Valdse DO | PCP | | + +------+ [...] | | | [facility] [address] | [place], [place] | | | | | [address] | [address] | | | | | [place] [address] | | | | | | [phone] | | | +--------+ + + + [...]
--- OUTSIDE RECORDS SUMMARY | ~2020-01-03 | XMS | Encounter Summary ---
Demographics + + + | Address | [address] | | | [place] [address] | + + + | Home Phone | | + + + | Preferred Language | Unknown | + + + | Marital Status | | + + + | Baptism Affiliation | Unknown | + + + | Race | Unknown | + + + | Ethnic Group | Unknown | + + + Author + + + | Author | [facility] | | | and [place] | + + + | Organization | [facility] | | | and [place] [...] [place], [place] | | | | | [address] | | + + + + + Care Team Providers + +------+ + | Care Security Installation Sales Technician Name | Role | Phone | + [...] | [facility] | [address] | | | | | IM[address] | [address] | | | | | [address] | [place] [address] | | | | | [place] [address] | | | | | | [phone] | | | +--------+ + + + [...] | + +--------+ + + + | XR KNEE LEFT 1 - 2 | Routin | 09/13/2018 | | Results for this | | VW | e | 12:00 AM | | procedure are in the | | | | PST | | results section. | + +--------+ + + + documented in this encounter Results XR Knee Left 1 - 2 Vw (09/13/2018 12:00 AM PST) + + | Specimen [...]
--- OUTSIDE RECORDS SUMMARY | ~2020-01-03 | XMS | Clinical Summary ---
Demographics + + + | Address | [address] | | | [place] [address] | + + + | Home Phone | | + + + | Preferred Language | Unknown | + + + | Marital Status | | + + + | Religion Affiliation | Unknown | + + + | Race | Unknown | + + + | Ethnic Group | Unknown | + + + Author + + + | Author | [facility] | | | and [place] | + + + | Organization | [facility] | | | and [place] [...] [place] | | | | | [address] | | + + + + + Care Team Providers + +------+ + | Care Sour Bleaching Pleater Name | Role | Phone | + [...] + + + + | Vaccine: Zoster (2 | | 12/21/2018, 09/13/2018 | | | of 3) | 9 | | | + + + + + | Vaccine: | | 02/12/2019 | | | Dtap/Tdap/Td (2 - | 9 | | | | Td) | | | | + + + + + | Vaccine: Influenza | Completed | 05/19/2019, 04/29/2015, | | | | | 07/10/2014, Additional history | | | | | exists | | + + + + + [...] +---------+------+ | [facility] | PHP | [phone] | 01/07/20 | [phone] | | PPO | | PLAN | PEBB | | 10-Pre | 5 | | | | | PROV | | sent | | | | | | CHOICE | | | | | | + +--------+ +--------+ +---------+------+ | [facility] | PHP | [phone] | 01/07/20 | [phone] | | PPO | | PLAN | [...] | | al/Fam | | 1971 | [phone] | [place] [address] | | | [place]oyd | | | 0 (Home) | | | | | | | [phone] | | | | | | | 0 (Work) | | + +--------+ +--------+ + + Advance Directives + + + + + | Type | Date Recorded | Patient | Explanation | | | | Surgical Garment Assembler | | + + + + + | Power of | | | | | Certified Genetic Counselor | | | | + + + + + | Advance | | | | | Directive | | | | + + + + +
--- OUTSIDE RECORDS SUMMARY | ~2020-01-03 | XMS | Encounter Summary ---
Demographics + + + | Address | [address] | | | [place] [address] | + + + | Home Phone | | + + + | Preferred Language | Unknown | + + + | Marital Status | | + + + | Yarsanism Affiliation | Unknown | + + + | Race | Unknown | + + + | Ethnic Group | Unknown | + + + Author + + + | Author | [facility] | | | and [place] | + + + | Organization | [facility] | | | and [place] [...] [place] | | | | | [address] | | + + + + + Care Team Providers + +------+ + | Care Wool Mixer Name | Role | Phone | + [...] | | | [facility] [address] | [place], [place] | | | | | [address] | [address] | | | | | [place] [address] | | | | | | [phone] | | | +--------+ + + + [...]
--- OUTSIDE RECORDS SUMMARY | ~2020-01-03 | XMS | Clinical Summary ---
Demographics + + + | Address | [address] | | | [place] [address] | + + + | Home Phone | | + + + | Preferred Language | Unknown | + + + | Marital Status | | + + + | Cheondoism Affiliation | Unknown | + + + | Race | Unknown | + + + | Ethnic Group | Unknown | + + + Author + + + | Author | [facility] | | | and [place] | + + + | Organization | [facility] | | | and [...] [place] | | | | | [address] | | + + + + + Care Team Providers + +------+ + | Care Assembler Adjuster Name | Role | Phone | + [...] +---------+------+ | [facility] | PHP | [phone] | 01/07/20 | [phone] | | PPO | | PLAN | PEBB | | 10-Pre | 5 | | | | | PROV | | sent | | | | | | CHOICE | | | | | | + +--------+ +--------+ +---------+------+ | [facility] | PHP | [phone] | 01/07/20 | [phone] | | PPO | | PLAN | [...] | | al/Fam | | 1971 | [phone] | [place] [address] | | | [place] | | | 0 (Home) | | | | | | | [phone] | | | | | | | 0 (Work) | | + +--------+ +--------+ + + Advance Directives + + + + + | Type | Date Recorded | Patient | Explanation | | | | Travel Counselor [employer] | | + + + + + | Power of | | | | | Phlebotomy Director | | | | + + + + + | Advance | | | | | Directive | | | | + + + + +
--- OUTSIDE RECORDS SUMMARY | ~2020-01-03 | XMS | Encounter Summary ---
Demographics + + + | Address | [address] | | | [place] [address] | + + + | Home Phone | | + + + | Preferred Language | Unknown | + + + | Marital Status | | + + + | Tenriism Affiliation | Unknown | + + + | Race | Unknown | + + + | Ethnic Group | Unknown | + + + Author + + + | Author | [facility] | | | and [place] | + + + | Organization | [facility] | | | and [place] [...] [place] | | | | | [address] | | + + + + + Care Team Providers + +------+ + | Care Facility Service Associate Name | Role | Phone | + +------+ + | Ben Valdes DO | PCP | | + +------+ + Encounter Details +--------+ + + + + | Date | Type | Department | Care Team | Description | +--------+ + + + + | 05/13/ | Hospital | [facility] | [facility] | | | 2014 | Encounter | MED CTR RAD[facility]ATION | MD [address] | | | | | ONCOLOGY [address] [place], [place] | | | | | [place], | [address] | | | | | [place] [address] | | | | | | [phone] | | | +--------+ + + + [...]
--- OUTSIDE RECORDS SUMMARY | ~2020-01-03 | XMS | Encounter Summary ---
Demographics + + + | Address | [address] | | | [place] [address] | + + + | Home Phone | | + + + | Preferred Language | Unknown | + + + | Marital Status | | + + + | Jain Affiliation | Unknown | + + + | Race | Unknown | + + + | Ethnic Group | Unknown | + + + Author + + + | Author | [facility] | | | and [place] | + + + | Organization | [facility] | | | and [...] [place], [place] | | | | | [address] | | + + + + + Care Team Providers + +------+ + | Care Shower Attendant Name | Role | Phone | + [...] | MED CTR EXTERNAL | [address] | | | | | IMAGING [address] | [address] | | | | | [address] | [place] [address] | | | | | [place] [address] | | | | | | [phone] | | | +--------+ + + + [...]
--- OUTSIDE RECORDS SUMMARY | ~2020-01-03 | XMS | Encounter Summary ---
Demographics + + + | Address | [address] | | | [place] [address] | + + + | Home Phone | | + + + | Preferred Language | Unknown | + + + | Marital Status | | + + + | Christianity Affiliation | Unknown | + + + | Race | Unknown | + + + | Ethnic Group | Unknown | + + + Author + + + | Author | [facility] | | | and Lanceana | + + + | Organization | [facility] | | | and [...] [place], [place] | | | | | [address] | | + + + + + Care Team Providers + +------+ + | Care Assistant Commissioner Name | Role | Phone | + [...] | Procedures | MD [address] | [place], | | | | | CT Treatment | [address] | [place] [address] | | | | | Plan | [place], | Phone: | | | | | Complex | [place] [address] | [phone] | | | | | | Phone: | Fax: | | | | | | [phone] | [phone] | | | | | | Fax: | | | | | | | [phone] | | +--------+--------+ + + + + Reason for Visit Auth/Cert +--------+--------+ + + + + | Status | Reason | Specialty | Diagnoses / | Referred By | Referred To | | | | | Procedures | Contact | Contact | +--------+--------+ + + + + | Closed | | | | | | +--------+--------+ + + + + Encounter Details +--------+ + + + + | Date | Type | Department | Care Team | Description | +--------+ + + + + | 05/13/ | [facility] | [facility] | [facility] | Keloid | | 2015 | Encounter | MED CTR CT [address] | MMD [address] | | | | | [place], | [place], [place] | | | | | [place] [address] | [address] | | | | | [phone] | | | +--------+ + + + [...] | + +--------+ + + + | CT TREATMENT PLAN | Routin | 05/13/2015 | Keloid | Results for this | | COMPLEX | e | 9:44 AM | | procedure are in the | | | | PDT | | results section. | + +--------+ + + + documented in this encounter Results CT Treatment Plan Complex [...] | Diagnosis | + + | Keloid Keloid scar | + + documented in this encounter"
--- OUTSIDE RECORDS SUMMARY | ~2020-01-03 | XMS | Encounter Summary ---
Demographics + + + | Address | [address] | | | [place] [address] | + + + | Home Phone | | + + + | Preferred Language | Unknown | + + + | Marital Status | | + + + | Holiness Affiliation | Unknown | + + + | Race | Unknown | + + + | Ethnic Group | Unknown | + + + Author + + + | Author | [facility] | | | and Lanceana | + + + | Organization | [facility] | | | and Lanceana [...] [place] | | | | | [address] | | + + + + + Care Team Providers + +------+ + | Care Infertility Nurse Name | Role | Phone | + [...] | | | | | | [address] | | | | | | | [place], | | | | | | | [place] [address] | | | | | | | Phone: | | | | | | | [phone] | | | | | | | Fax: | | | | | | | [phone] | +--------+--------+ + + + + Encounter Details +--------+ + + + + | Date | Type | Department | Care Team | Description | +--------+ + + + + | 04/23/ | Hospital | [facility] | [facility] | | | 2014 | Encounter | MED CTR RADIATION | MD Barbi [address] | | | | | ONCOLOGY [address] | [place] | | | | | [place], | [id number] | | | | | [place] [address] | | | | | | [phone] | | | +--------+ + + + [...]
--- OUTSIDE RECORDS SUMMARY | ~2020-01-03 | XMS | Encounter Summary ---
Demographics + + + | Address | [address] | | | [place] [address] | + + + | Home Phone | | + + + | Preferred Language | Unknown | + + + | Marital Status | | + + + | Adventism Affiliation | Unknown | + + + | Race | Unknown | + + + | Ethnic Group | Unknown | + + + Author + + + | Author | [facility] | | | and Lanceana | + + + | Organization | [facility] | | | and [...] [place], [place] | | | | | [address] | | + + + + + Care Team Providers + +------+ + | Care Ethylene Plant Operator Name | Role | Phone | [...] | Procedures | MD [address] | [place], | | | | | CT Treatment | [address] | [place] [address] | | | | | Plan | [place], | Phone: | | | | | Complex | [place] [address] | [phone] | | | | | | Phone: | Fax: | | | | | | [phone] | [phone] | | | | | | Fax: | | | | | | | [phone] | | +--------+--------+ + + + + [...] | | ONCOLOGY [address] | [facility] [place] | | | | | [place], | [address] | | | | | [place] [address] | | | | | | [phone] | | | +--------+ + + + [...]
--- OUTSIDE RECORDS SUMMARY | ~2020-01-03 | XMS | Encounter Summary ---
Demographics + + + | Address | [address] | | | [place] [address] | + + + | Home Phone | | + + + | Preferred Language | Unknown | + + + | Marital Status | | + + + | Mu-Ism Affiliation | Unknown | + + + | Race | Unknown | + + + | Ethnic Group | Unknown | + + + Author + + + | Author | [facility] | | | and Lanceana | + + + | Organization | [facility] | | | and Lanceana [...] [place] | | | | | [address] | | + + + + + Care Team Providers + +------+ + | Care Hat Ironer Name | Role | Phone | + [...] | | | ONCOLOGY CLINIC [address] | [place], [place] | | | | | [address] | [address] | | | | | [place] [address] | | | | | | [phone] | | | +--------+ + + + [...]
--- OUTSIDE RECORDS SUMMARY | ~2020-01-03 | XMS | Encounter Summary ---
Demographics + + + | Address | [address] | | | [place] [address] | + + + | Home Phone | | + + + | Preferred Language | Unknown | + + + | Marital Status | | + + + | Caodaism Affiliation | Unknown | + + + | Race | Unknown | + + + | Ethnic Group | Unknown | + + + Author + + + | Author | [facility] | | | and Lanceana | + + + | Organization | [facility] | | | and [...] [place], [place] | | | | | [address] | | + + + + + Care Team Providers + +------+ + | Care Medical Affairs Manager Name | Role | Phone | + [...] | Procedures | MD [address] | [place], | | | | | CT Treatment | [address] | [place] [address] | | | | | Plan | [place], | Phone: | | | | | Complex | [place] [address] | [phone] | | | | | | Phone: | Fax: | | | | | | [phone] | [phone] | | | | | | Fax: | | | | | | | [phone] | | +--------+--------+ + + + + [...] | | ONCOLOGY [address] | [facility] [place] | | | | | [place], | [address] | | | | | [place] [address] | | | | | | [phone] | | | +--------+ + + + [...]
--- OUTSIDE RECORDS SUMMARY | ~2020-01-03 | XMS | Encounter Summary ---
Demographics + + + | Address | [address] | | | [place] [address] | + + + | Home Phone | | + + + | Preferred Language | Unknown | + + + | Marital Status | | + + + | Muslim Affiliation | Unknown | + + + | Race | Unknown | + + + | Ethnic Group | Unknown | + + + Author + + + | Author | [facility] | | | and Lanceana | + + + | Organization | [facility] | | | and [...] [place], [place] | | | | | [address] | | + + + + + Care Team Providers + +------+ + | Care Senior Back End Java Developer Name | Role | Phone | + [...] | MED CTR EXTERNAL | MD [address] | | | | | IMAGING [address] | [address] | | | | | [place] | [place] [address] | | | | | [place] [address] | | | | | | [phone] | | | +--------+ + + + [...]
--- OUTSIDE RECORDS SUMMARY | ~2020-01-03 | XMS | Encounter Summary ---
Demographics + + + | Address | [address] | | | [place] [address] | + + + | Home Phone | | + + + | Preferred Language | Unknown | + + + | Marital Status | | + + + | Evangelical Affiliation | Unknown | + + + | Race | Unknown | + + + | Ethnic Group | Unknown | + + + Author + + + | Author | [facility] | | | and Lanceana | + + + | Organization | [facility] | | | and [...] [place] | | | | | [address] | | + + + + + Care Team Providers + +------+ + | Care Supervisor Brine Name | Role | Phone | + [...] | | | | | | [address] | | | | | | | [place], | | | | | | | [place] [address] | | | | | | | Phone: | | | | | | | [phone] | | | | | | | Fax: | | | | | | | [phone] | +--------+--------+ + + + + Encounter Details +--------+ + + + + | Date | Type | Department | Care Team | Description | +--------+ + + + + | 04/23/ | Hospital | [facility] | [facility] | | | 2014 | Encounter | MED CTR RADIATION | MD Barbi [address] | | | | | ONCOLOGY [address] | [place] | | | | | [place], | [address] | | | | | [place] [address] | | | | | | [phone] | | | +--------+ + + + [...]
--- OUTSIDE RECORDS SUMMARY | ~2020-01-03 | XMS | Encounter Summary ---
Demographics + + + | Address | [address] | | | [place] [address] | + + + | Home Phone | | + + + | Preferred Language | Unknown | + + + | Marital Status | | + + + | Yazidism Affiliation | Unknown | + + + | Race | Unknown | + + + | Ethnic Group | Unknown | + + + Author + + + | Author | [facility] | | | and Lanceana | + + + | Organization | [facility] | | [...] [place], [place] | | | | | [address] | | + + + + + Care Team Providers + +------+ + | Care Crab Butcher Name | Role | Phone | + [...] | Procedures | MD [address] | [place], | | | | | CT Treatment | [address] | [place] [address] | | | | | Plan | [place], | Phone: | | | | | Complex | [place] [address] | [phone] | | | | | | Phone: | Fax: | | | | | | [phone] | [phone] | | | | | | Fax: | | | | | | | [phone] | | +--------+--------+ + + + + [...] + + + + | 05/13/ | [facility] | [facility] | [facility] | Keloid | | 2015 | Encounter | MED CTR CT [address] | MMD [address] | | | | | [place], | [place], [place] | | | | | [place] [address] | [address] | | | | | [phone] | | | +--------+ + + + [...]
--- OUTSIDE RECORDS SUMMARY | ~2020-01-03 | XMS | Encounter Summary ---
Demographics + + + | Address | [address] | | | [place] [address] | + + + | Home Phone | | + + + | Preferred Language | Unknown | + + + | Marital Status | | + + + | Denominational Affiliation | Unknown | + + + | Race | Unknown | + + + | Ethnic Group | Unknown | + + + Author + + + | Author | [facility] | | | and Lanceana | + + + | Organization | [facility] | | | and [...] [place] | | | | | [address] | | + + + + + Care Team Providers + +------+ + | Care Director Of Child Welfare Services Name | Role | Phone | + [...] [place] | unspecified | | | | [address] | [address] | seasonality, | | | | [phone] | | unspecified trigger; | | | [...] are examples of irritants. Date Last Reviewed: 04/08/20161999[address]-[address] [employer] [place] [address], [place] [address]. All righ ts reserved. This information is [...] allergies, talk to your doctor or health healthcare specialist before using it for a longer time. Ask your doctor or health healthcare specialist if you have any questions. Talk to your advance agent regarding the use of this medicine in children. Special care may be needed. Some products have been used for allergies in children as young as 2 years. After 2 months of daily use without a prescription in a child, talk to your advance agent before u sing it for a longer time. Use of this medicine for nasal polyps is not approved in children . What side effects may I notice from receiving this medicine? Side effects that you should report to your doctor or health healthcare specialist as soon as p ossible: allergic reactions [...] attention (report to your doctor or health healthcare specialist if they continue or are bothersome): burning [...] this medicine? Visit your doctor or health healthcare specialist for regular checks on your progress. Some sym ptoms may improve within 12 hours after starting use. Check with your doctor or health healthcare specialist if there is no improvement in your [...]
[~2020-01-03 20:20] MED LIST changes: +ALLEGRA ALLERGY60 MG PO; +TYLENOL EXTRA500 MG PO; +VALACYCLOVIR500 MG PO
[2020-01-03] MEDS ORDERED: VISTARIL25 MG PO (20:48)
[2020-01-03] MEDS ORDERED: PREDNISONE20 MG PO (20:48)
== END 2020-01-03 20:54 | disposition home or self-care (01) ==
LOC: ED 20:20
DX: L29.9 Pruritus, unspecified (principal); Z91.018 Allergy to other foods; Z88.5 Allergy status to narcotic agent
CPT/HCPCS: 99282

== ENCOUNTER 2021-03-28 15:44 | Emergency (ER) | payer OTHER ==
[~2021-03-28] VITALS: Ht 170.2 cm; Wt 78.0 kg
[~2021-03-28 15:44] MED LIST changes: +PREDNISONE20 MG PO; +VISTARIL25 MG PO
[2021-03-28] MEDS ORDERED: HYDROCODON-ACE1 EA11 PO (17:06)
== END 2021-03-28 17:32 | disposition home or self-care (01) ==
LOC: ED 15:44
DX: S73.102A Unspecified sprain of left hip, initial encounter (principal); Z88.5 Allergy status to narcotic agent; Z91.018 Allergy to other foods; Z79.899 Other long term (current) drug therapy; Z79.52 Long term (current) use of systemic steroids; X50.1XXA Overexertion from prolonged static or awkward postures, initial encounter
CPT/HCPCS: 73502; 99283-25; A9270

== ENCOUNTER 2021-05-28 15:59 | Emergency (ER) | payer OTHER ==
[~2021-05-28] VITALS: Ht 170.2 cm; Wt 78.0 kg
[~2021-05-28 15:59] MED LIST changes: +HYDROCODON-ACE1 EA11 PO
[2021-05-28] MEDS ORDERED: PROAIR RESPICL90 MCG INH (16:20)
--- NOTE | 2021-05-28 18:15 | EKG ---
[facility] [address] [place] [address] Signed Normal sinus rhythm Normal ECG When compared with ECG of 16-AUG-2019 20:32, T wave inversion no longer evident in Inferior leads Confirmed by JOSÉ MIGUEL FRIAS MD ([id number]) on 05/28/2021 6:14:56 PM Electronically Signed By: JOSÉ MIGUEL FRIAS MD 05/28/21 1815 PATIENT NAME: ALESHIACAROLINAYING PAGAN Electrocardiogram DATE OF : 66 PHYSICIAN: JOSÉ MIGUEL FRIAS MD REPORT #: [id number] REPORT IS CONFIDENTIAL AND NOT TO BE RELEASED WITHOUT AUTHORIZATION
[2021-05-28] MEDS ORDERED: VENTOLIN HFA18 GM INH (19:19)
[2021-05-28] MEDS ORDERED: PREDNISONE20 MG PO (19:19)
== END 2021-05-28 21:05 | disposition home or self-care (01) ==
LOC: ED 15:59
DX: U07.1 COVID-19 (principal); J45.901 Unspecified asthma with (acute) exacerbation; K90.0 Celiac disease; Z91.018 Allergy to other foods; Z88.5 Allergy status to narcotic agent
CPT/HCPCS: 71045; 80053; 83735; 84484; 85025; 93005; 93010; 94640; 99285-25; C9803; J7512; M0243; Q0244; U0003

== ENCOUNTER 2021-10-06 12:40 | Emergency (ER) | payer OTHER ==
[~2021-10-06] VITALS: Ht 170.2 cm; Wt 78.0 kg
[~2021-10-06 12:40] MED LIST changes: +PROAIR RESPICL90 MCG INH; +VENTOLIN HFA18 GM INH
[2021-10-06] MEDS ORDERED: HYDROCODON-ACE1 EA10 PO (13:18)
[2021-10-06] MEDS ORDERED: NAPROSYN500 MG PO (13:18)
== END 2021-10-06 13:35 | disposition home or self-care (01) ==
LOC: ED 12:40
DX: M25.511 Pain in right shoulder (principal); J45.909 Unspecified asthma, uncomplicated; Z88.5 Allergy status to narcotic agent; Z91.010 Allergy to peanuts; Z98.890 Other specified postprocedural states
CPT/HCPCS: 73030; 96372; 99283-25; A9270; J1885

== ENCOUNTER 2022-07-03 16:02 | Emergency (ER) | payer OTHER ==
[~2022-07-03] VITALS: Ht 170.2 cm; Wt 84.7 kg
[~2022-07-03 16:02] MED LIST changes: +HYDROCODON-ACE1 EA10 PO; +NAPROSYN500 MG PO
[2022-07-03] MEDS ORDERED: PERCOCET 5-3251 EACH PO (19:37)
[2022-07-03] MEDS ORDERED: PREDNISONE20 MG PO (19:37)
--- NOTE | 2022-07-04 07:54 | EKG ---
[facility] [address] [place], [place] [address] Signed Normal sinus rhythm Normal ECG When compared with ECG of 28-MAY-2021 16:06, No significant change was found Confirmed by CANDIE ANDREW MD ([id number]) on 07/04/2022 7:54:24 AM Electronically Signed By: CANDIE ANDREW MD 07/04/22 0754 PATIENT NAME: CAROLINA MONK Electrocardiogram DATE OF : 66 PHYSICIAN: CANDIE ANDREW MD REPORT #: [id number] REPORT IS CONFIDENTIAL AND NOT TO BE RELEASED WITHOUT AUTHORIZATION
== END 2022-07-03 20:18 | disposition home or self-care (01) ==
LOC: ED 16:02
DX: R07.9 Chest pain, unspecified (principal); M54.12 Radiculopathy, cervical region; J45.909 Unspecified asthma, uncomplicated; Z88.5 Allergy status to narcotic agent; Z91.018 Allergy to other foods
CPT/HCPCS: 36415; 71045; 80053; 83690; 83735; 84484; 85025; 85379; 93005; 93010; 96374; 96375; 99285-25; A9270; J1100; J1885

== ENCOUNTER 2022-10-02 07:57 | Emergency (ER) | payer OTHER ==
[~2022-10-02] VITALS: Ht 170.2 cm; Wt 85.0 kg
[~2022-10-02 07:57] MED LIST changes: +PERCOCET 5-3251 EACH PO
--- OUTSIDE RECORDS SUMMARY | 2022-10-02 08:00 | XMS ---
PreManage Notification: CAROLINA MONK Security Release Manager Events 1 event(s) in the past 18 months Most recent security events: Elopement at [facility] 07/03/2022 16:02 - Patient eloped before treatment completed. - Patient with suicidal and/or homicidal ideations eloped. - Patient eloped with IV in place. Details: PATIENT LWBS CRITERIA MET - Group Notification - [facility] CARE PROVIDERS [place] Physician Current PHONE: Unknown Uma has no Care Guidelines for this patient. Luanne VISIT COUNT (12 MO.) 3 [facility] TOTAL 3 NOTE: Visits indicate total known visits. ED/UCC VISIT TRACKING (12 MO.) 10/02/2022 07:58 [facility] [place] TYPE: Emergency COMPLAINT: - HEADACHE 07/03/2022 16:02 [facility] [place] TYPE: Emergency COMPLAINT: - CHEST PAIN DIAGNOSES: - Unspecified asthma, uncomplicated - Allergy status to narcotic agent - Chest pain, unspecified - Radiculopathy, cervical region - Allergy to other foods 10/06/2021 12:41 [facility] [place] TYPE: Emergency COMPLAINT: - POSS DISLOCATED R SHOULDER DIAGNOSES: - Pain in right shoulder - Allergy to peanuts - Unspecified asthma, uncomplicated - Other specified postprocedural states - Allergy status to narcotic agent INPATIENT VISIT TRACKING (12 MO.) No inpatient visits to display in this time frame [email or web address]
[2022-10-02] MEDS ORDERED: IMITREX20 MG NAS (09:33)
[2022-10-02] MEDS ORDERED: CYCLOBENZAPRINE10 MG PO (09:33)
[2022-10-02] MEDS ORDERED: HYDROCODON-ACE1 EA10 PO (18:52)
== END 2022-10-02 09:57 | disposition home or self-care (01) ==
LOC: ED 07:57
DX: R51.9 Headache, unspecified (principal); J45.909 Unspecified asthma, uncomplicated; Z88.5 Allergy status to narcotic agent; Z91.018 Allergy to other foods
CPT/HCPCS: 36415; 70450; 80053; 85025; 96374; 96375; 96376; 99284-25; J1200; J2270; J2765; J7030

== ENCOUNTER 2022-10-02 17:00 | Emergency (ER) | payer OTHER ==
[~2022-10-02] VITALS: Ht 170.2 cm; Wt 85.0 kg
[~2022-10-02 17:00] MED LIST changes: +CYCLOBENZAPRINE10 MG PO; +IMITREX20 MG NAS
--- OUTSIDE RECORDS SUMMARY | 2022-10-02 17:03 | XMS ---
PreManage Notification: CAROLINA MONK Security Model And Mold Maker Events 1 event(s) in the past 18 months Most recent security events: Elopement at [facility] 07/03/2022 16:02 - Patient eloped before treatment completed. - Patient with suicidal and/or homicidal ideations eloped. - Patient eloped with IV in place. Details: PATIENT LWBS CRITERIA MET - [facility] - 2 Visits in 30 Days - [facility] [place] Current PHONE: Unknown Uma has no Care Guidelines for this patient. Luanne VISIT COUNT (12 MO[address] [place] [address] TOTAL 4 NOTE: Visits indicate total known visits. ED/UCC VISIT TRACKING (12 MO.) 10/02/2022 17:00 [facility] [place] TYPE: Emergency COMPLAINT: - HEADACHE 10/02/2022 07:58 [facility] [place] TYPE: Emergency COMPLAINT: - HEADACHE 07/03/2022 16:02 [facility] [place] TYPE: Emergency COMPLAINT: - CHEST PAIN DIAGNOSES: - Radiculopathy, cervical region - Allergy to other foods - Unspecified asthma, uncomplicated - Allergy status to narcotic agent - Chest pain, unspecified 10/06/2021 12:41 [facility] [place] TYPE: Emergency COMPLAINT: - POSS DISLOCATED R SHOULDER DIAGNOSES: - Other specified postprocedural states - Allergy status to narcotic agent - Pain in right shoulder - Allergy to peanuts - Unspecified asthma, uncomplicated INPATIENT VISIT TRACKING (12 MO.) No inpatient visits to display in this time frame [email or web address]
[2022-10-02] MEDS ORDERED: HYDROCODON-ACE1 EA10 PO (18:52)
== END 2022-10-02 19:41 | disposition home or self-care (01) ==
LOC: ED 17:00
DX: S16.1XXA Strain of muscle, fascia and tendon at neck level, initial encounter (principal); R51.9 Headache, unspecified; J45.909 Unspecified asthma, uncomplicated; Z88.5 Allergy status to narcotic agent; Z91.018 Allergy to other foods; Z79.899 Other long term (current) drug therapy; X58.XXXA Exposure to other specified factors, initial encounter
CPT/HCPCS: 70496; 70498; 96361; 96374; 96375; 99284-25; J1170; J1200; J1885; J2405; J2765; J7030; Q9967

== ENCOUNTER 2023-06-15 17:21 | Emergency (ER) | payer OTHER ==
[~2023-06-15] VITALS: Ht 170.2 cm; Wt 85.7 kg
--- OUTSIDE RECORDS SUMMARY | 2023-06-15 17:24 | XMS ---
PreManage Notification: CAROLINA MONK Security Clinical Documentation Developer Events 1 event(s) in the past 18 months Most recent security events: Elopement at [facility] 07/03/2022 16:02 - Patient eloped before treatment completed. - Patient with suicidal and/or homicidal ideations eloped. - Patient eloped with IV in place. Details: PATIENT LWBS CRITERIA MET - Group Notification CARE PROVIDERS [place] Physician Current PHONE: Unknown Uma has no Care Guidelines for this patient. Luanne VISIT COUNT (12 MO.) 4 [facility] TOTAL 4 NOTE: Visits indicate total known visits. ED/UCC VISIT TRACKING (12 MO.) 06/15/2023 17:21 [facility] [place] TYPE: Emergency COMPLAINT: - CHEST PAIN 10/02/2022 17:00 [facility] [place] TYPE: Emergency COMPLAINT: - HEADACHE DIAGNOSES: - Allergy status to narcotic agent - Allergy to other foods - Exposure to other specified factors, initial encounter - Headache, unspecified - Other head of drama (current) drug therapy - Strain of muscle, fascia and tendon at neck level, initial encounter - Unspecified asthma, uncomplicated 10/02/2022 07:58 [facility] [place] TYPE: Emergency COMPLAINT: - HEADACHE DIAGNOSES: - Allergy status to narcotic agent - Allergy to other foods - Headache, unspecified - Unspecified asthma, uncomplicated 07/03/2022 16:02 [facility] [place] TYPE: Emergency COMPLAINT: - CHEST PAIN DIAGNOSES: - Allergy status to narcotic agent - Allergy to other foods - Chest pain, unspecified - Radiculopathy, cervical region - Unspecified asthma, uncomplicated INPATIENT VISIT TRACKING (12 MO.) No inpatient visits to display in this time frame [id number]
[2023-06-15 17:39] LABS: BASOPHILS 0.6 % (0-2); EOSINOPHILS 5.2 % (0-6); HEMOGLOBIN 13.6 g/dL (12.0-18.0); LYMPHOCYTES 33.9 % (24-44); MCV 91.3 fl (81-99); MONOCYTES 6.6 % (0-12); NEUTROPHILS 53.7 % (39-80); PLATELET COUNT 314 K/uL (140-440); RBC 4.38 M/ul (4.3-5.7); RDW 12.5 (10.5-15.0)
[2023-06-15 17:56] LABS: ALBUMIN 3.9 g/dL (3.4-5.0); ALBUMIN/GLOBULIN RATIO 1.22 (1.1-2.4); ANION GAP 12.7 (7-21); BILIRUBIN, TOTAL 0.2 ng/dL (0.2-1.0); BUN/CREATININE RATIO 17.72 (6.0-28.6); CREATININE, SERUM 0.79 mg/dL (0.55-1.02); MAGNESIUM 1.9 mg/dL (1.8-2.4); POTASSIUM 3.7 mmol/L (3.5-5.1); PROTEIN, TOTAL 7.1 g/dL (6.4-8.2)
[2023-06-15 20:37] LABS: BILIRUBIN, URINE NEGATIVE (negative); BLOOD/HGB, URINE NEGATIVE (Negative); KETONE, URINE NEGATIVE (Negative); LEUK ESTERASE, URINE NEGATIVE (negative); NITRITE, URINE NEGATIVE (negative); PH, URINE 6.5 (5-7)
[2023-06-15 21:20] VITALS: BP 137/94
--- NOTE | 2023-06-16 11:55 | EKG ---
[facility] [address] [facility] [facility] [place], [place] [address] Signed Normal sinus rhythm Normal ECG When compared with ECG of 03-JUL-2022 16:10, Questionable change in QRS axis Confirmed by ARLINE FINK MD ([id number]) on 06/16/2023 11:54:54 AM Electronically Signed By: ARLINE FINK 06/16/23 1155 PATIENT NAME: CAROLINA MONK Electrocardiogram DATE OF : 66 PHYSICIAN: ARLINE FINK REPORT #: [id number] REPORT IS CONFIDENTIAL AND NOT TO BE RELEASED WITHOUT AUTHORIZATION
== END 2023-06-15 21:20 | disposition home or self-care (01) ==
LOC: ED 17:21
PROVIDERS: Emergency Medicine; Internal Medicine
DX: B34.9 Viral infection, unspecified (principal); K21.9 Gastro-esophageal reflux disease without esophagitis; Z91.018 Allergy to other foods; Z88.5 Allergy status to narcotic agent
CPT/HCPCS: 36415; 71045; 80053; 81003; 83735; 84484; 85025; 93005; 93010; A9270; J7121

== ENCOUNTER 2024-03-26 11:15 | Observation (INO) | payer OTHER ==
[~2024-03-26] VITALS: Ht 170.2 cm; Wt 85.3 kg
--- OUTSIDE RECORDS SUMMARY | 2024-03-26 11:16 | XMS ---
PreManage Notification: CAROLINA MONK Security Coater Hand Events No recent Security Events currently on file CRITERIA MET - [facility] There are no care providers on record at this time. Uma has no Care Guidelines for this patient. Luanne VISIT COUNT (12 MO.) 2 [facility] TOTAL 2 NOTE: Visits indicate total known visits. ED/C VISIT TRACKING (12 MO.) 03/26/2024 11:16 [facility] [place] TYPE: Emergency COMPLAINT: - CHEST PAIN 06/15/2023 17:21 [facility] [place] TYPE: Emergency COMPLAINT: - CHEST PAIN DIAGNOSES: - Allergy status to narcotic agent - Allergy to other foods - Gastro-esophageal reflux disease without esophagitis - Other chest pain - Viral infection, unspecified INPATIENT VISIT TRACKING (12 MO.) No inpatient visits to display in this time frame [id number]
[2024-03-26] MEDS ORDERED: ASPIRIN 81 MG CHEW PO ONE (11:30)
[2024-03-26] MEDS ORDERED: CLARITIN10 M2 PO (11:30)
[2024-03-26 12:44] LABS: HEMOGLOBIN 13.6 g/dL (12.0-18.0); MCH 29.9 (27-36); MCHC 33.3 g/dl (30-36); MCV 89.9 fl (81-99); RBC 4.56 M/ul (4.3-5.7); RDW 12.7 (10.5-15.0)
[2024-03-26 13:02] LABS: ALBUMIN 3.9 g/dL (3.4-5.0); ALBUMIN/GLOBULIN RATIO 1.18 (1.1-2.4); ALKALINE PHOSPHATASE 135 U/L (46-116); ALT (SGPT) 69 U/L (14-59); ANION GAP 13.1 (7-21); AST (SGOT) 24 U/L (15-37); BILIRUBIN, TOTAL 0.4 ng/dL (0.2-1.0); BUN/CREATININE RATIO 22.36 (6.0-28.6); CALCIUM 9.4 mg/dL (8.5-10.1); CARBON DIOXIDE 30 mmol/L (21-32); CHLORIDE 101 mmol/L (98-107); CREATININE, SERUM 0.76 mg/dL (0.55-1.02); GLOMERULAR FILTRATION RATE,EST 92 mL/min (>60); MAGNESIUM 2.2 mg/dL (1.8-2.4); POTASSIUM 4.1 mmol/L (3.5-5.1); PROTEIN, TOTAL 7.2 g/dL (6.4-8.2); UREA NITROGEN 17 mg/dL (7-18)
[2024-03-26 13:19] LABS: BASOPHILS, MANUAL DIFF 1; EOSINOPHILS, MANUAL DIFF 3; LYMPHOCYTES, MANUAL DIFF 23; MONOCYTES, MANUAL DIFF 8; NEUTROPHILS, MANUAL DIFF 65
[2024-03-26] MEDS ORDERED: LIDOCAINE & ANTACID 35 ML BTL PO ONE (16:00)
[2024-03-26] MEDS ORDERED: HYDROmorphone HCL 1 MG/ML SYR IV ONE (17:30)
[2024-03-26] MEDS ORDERED: PANTOPRAZOLE SODIUM 40 MG/10 ML VIAL IV ONE (19:00)
[2024-03-26] MEDS ORDERED: MORPHINE SULFATE 4 MG/ML VIAL IV PRN ×2 (19:45)
[2024-03-26] MEDS ORDERED: ondansetron HCL 4 MG/2 ML VIAL IV PRN (19:45)
[2024-03-26] MEDS ORDERED: ACETAMINOPHEN 1,000 MG/100 ML VIAL IV PRN (19:45)
[2024-03-26] MEDS ORDERED: D5W 1/2 NS + 20 KCL 1,000 ML IV SCH (19:45)
[2024-03-26] MEDS ORDERED: PROCHLORPERAZINE EDISYLATE 10 MG/2 ML VIAL IV PRN (19:45)
[2024-03-26] MEDS ORDERED: ALBUTEROL SULFATE 0.083% 3 ML VIAL INH PRN (20:00)
--- NOTE | 2024-03-26 20:02 | EKG ---
[facility] [address] [place], [place] [address] Signed Normal sinus rhythm Normal ECG No previous ECGs available mild elevated QTc Confirmed by Sea Gordon ([id number]) on 03/26/2024 8:02:01 PM Electronically Signed By: SEA GORDON MD 03/26/242001 PATIENT NAME: CAROLINA MONK Electrocardiogram DATE OF : 66 PHYSICIAN: SEA GORDON MD REPORT #: [id number] REPORT IS CONFIDENTIAL AND NOT TO BE RELEASED WITHOUT AUTHORIZATION
[2024-03-26 20:43] VITALS: BP 124/82
[2024-03-26] MEDS ORDERED: MELATONIN 3 MG TAB PO PRN (21:00)
--- NOTE | 2024-03-26 21:21 | NUR ---
Arrived to room 115 at 2040 from ER via w/c acompanied by and ER staff. Alert and oriented, cooperative with admit questions and vitals. Oriented to room and procedures, IVF infusing, CPOX on at bedside. in room,
[2024-03-26 21:23] LABS: EOSINOPHILS 0.8 % (0-6); HEMOGLOBIN 13.4 g/dL (12.0-18.0); RDW 12.9 (10.5-15.0)
[2024-03-26 21:25] LABS: BASOPHILS 0.6 % (0-2); HEMATOCRIT 40.4 % (35.0-50.0); MCH 29.9 (27-36); MCHC 33.3 g/dl (30-36); NEUTROPHILS 79.6 % (39-80); PLATELET COUNT 321 K/uL (140-440); RBC 4.49 M/ul (4.3-5.7)
--- NOTE | 2024-03-26 22:06 | NUR ---
ADMISSION ASSESSMENT COMPLETE. IVF INFUSING PER ORDER. PT REPORTS EPIGASTRIC PAIN 02/14. PRN FOR PAIN ADMIN PER EMAR. PT DENIES NAUSEA. ABD SOFT. BOWEL TONES ACTIVE. UP TO BR TO VOID 300 ML YELLOW URINE. GAIT STEADY. BACK TO BED. CPOX IN PLACE. PT ORIENTED TO ROOM AND NURSE CALL LIGHT. DENIES QUESTIONS OR CONCERNS. CALL LIGHT IN REACH.
[2024-03-27] VITALS (8 sets, daily range): BP systolic 102–122; BP diastolic 71–82
[2024-03-27 01:19] LABS: BASOPHILS 0.7 % (0-2); HEMATOCRIT 38.1 % (35.0-50.0); HEMOGLOBIN 12.8 g/dL (12.0-18.0); LYMPHOCYTES 23.9 % (24-44); MCH 30.1 (27-36); MCHC 33.6 g/dl (30-36); MCV 89.8 fl (81-99); MONOCYTES 7.3 % (0-12); NEUTROPHILS 66.1 % (39-80); PLATELET COUNT 296 K/uL (140-440); RBC 4.25 M/ul (4.3-5.7); RDW 12.8 (10.5-15.0)
--- NOTE | 2024-03-27 01:33 | NUR ---
LAB IN ROOM FOR DRAW. VS AND I&O OBTAINED. PT REPORTS EPIGASTRIC PAIN 03/17. PRN FOR PAIN ADMIN PER EMAR. NO C/O NAUSEA. WARM COMPRESS PROVIDED FOR ABD. NO FURTHER NEEDS.
--- NOTE | 2024-03-27 04:32 | NUR ---
PT RESTING IN BED WITH EYES CLOSED. RESPIRATIONS EVEN. CALL LIGHT IN REACH.
--- NOTE | 2024-03-27 05:02 | NUR ---
IV PUMP ALARMING. NEW BAG IVF INFUSING PER ORDER. PT UP TO BR TO VOID. BACK TO BED, ITZ WELL. REPORTS ABD PAIN 01/15. PRN FOR PAIN ADMIN PER EMAR. VS AND I&O OBTAINED. NO FURTHER NEEDS.
[2024-03-27 07:05] LABS: EOSINOPHILS 3.9 % (0-6); HEMATOCRIT 39.5 % (35.0-50.0); LYMPHOCYTES 28.4 % (24-44); MCH 29.8 (27-36); MCHC 32.9 g/dl (30-36); MCV 90.6 fl (81-99); MONOCYTES 8.4 % (0-12); NEUTROPHILS 58.3 % (39-80); PLATELET COUNT 273 K/uL (140-440); RBC 4.36 M/ul (4.3-5.7); RDW 12.9 (10.5-15.0)
--- NOTE | 2024-03-27 07:15 | NUR ---
VERBAL REPORT RECEIVED FROM NOEL DONNELLY. PT AWAKE AND ALERT, DR. MILLER INTO SEE PT.
[2024-03-27 07:16] LABS: ALBUMIN 3.3 g/dL (3.4-5.0); ALBUMIN/GLOBULIN RATIO 1.14 (1.1-2.4); ANION GAP 10.2 (7-21); BILIRUBIN, TOTAL 0.5 ng/dL (0.2-1.0); BUN/CREATININE RATIO 14.66 (6.0-28.6); CALCIUM 8.8 mg/dL (8.5-10.1); CREATININE, SERUM 0.75 mg/dL (0.55-1.02); POTASSIUM 4.2 mmol/L (3.5-5.1); PROTEIN, TOTAL 6.2 g/dL (6.4-8.2)
[2024-03-27] MEDS ORDERED: PANTOPRAZOLE SODIUM 40 MG/10 ML VIAL IV SCH (09:00)
[2024-03-27] MEDS ORDERED: VENTOLIN HFA18 GM INH (09:08)
[2024-03-27] MEDS ORDERED: CLARITIN10 MG PO (09:09)
--- NOTE | 2024-03-27 09:09 | NUR ---
MED REC COMPLETE
--- NOTE | 2024-03-27 09:44 | NUR ---
PT LEAVES UNIT VIA DEVON, ESCORTED BY NOEL SALINAS, TO SURGERY FOR PROCEDURE.
[2024-03-27] MEDS ORDERED: propofoL 200 MG/20 ML VIAL ONE (09:45)
--- NOTE | 2024-03-27 09:58 | CONS ---
[facility] [address], [place] [address] Signed DATE OF CONSULTATION: 03/27/2024 CHIEF COMPLAINT: Epigastric abdominal pain. 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 She is apparently under quite a bit of stress. She was having epigastric abdominal pain and nausea. She is also having some chest pain. She came to emergency room for evaluation. She underwent cardiac protocol and everything came out fine including the troponin and her EKG. She actually underwent a stress test yesterday through the emergency room and did just fine. She then mentioned to the ER doctor that she was having melena at least four times. Consequently, she was admitted to our Internal Medicine Service. I have been asked to see Carolina as a general surgeon on-call for consideration of upper endoscopy. She tells me she has had upper and lower endoscopy in the last several years with Dr. Holm and apparently everything been fine. She cannot recall any polyps or diverticulosis or hemorrhoids. Apparently, she has been diagnosed with celiac disease, but is not overly careful with her diet. She has done well overnight. PAST MEDICAL HISTORY: Celiac disease, asthma, and seasonal allergies. PAST SURGICAL HISTORY: C-sections x3, laparoscopic cholecystectomy in her 20s, hysterectomy with one ovary remaining, a partial left knee surgery, right shoulder surgery, upper and lower endoscopy with Dr. Holm and right knee surgery x2. SOCIAL HISTORY: She does not smoke. She has occasional drink. She had a negative stress test yesterday. Bladimir Mills is her primary care provider. She drives. She is the caregiver for her , Jose, but Jose is her power of banking attorney. She works as a lead for the [employer]. She is a full code. FAMILY HISTORY: Brother has metastatic cancer. REVIEW OF SYSTEMS: She has no metal in her body. ALLERGIES: Codeine, nuts cause anaphylaxis and gluten. Electronically Signed By: TERESA MILLER MD 03/27/24 0958 PATIENT NAME: CAROLINA MONK CONSULTATION DATE OF : 66 REPORT #: [id number] PHYSICIAN: TERESA MILLER MD PCP: BLADIMIR MILLS PAC REPORT IS CONFIDENTIAL AND NOT TO BE RELEASED WITHOUT AUTHORIZATION [facility] [address], [place] [address] Signed MEDICATIONS: None. PHYSICAL EXAMINATION: VITAL SIGNS: Her blood pressure is 119/79, heart rate 78, respiratory rate is 16, temperature is 98.0. She is 96% on room air. She is 5 feet 7 inches tall at 83 kg. Her body mass index 29. GENERAL: Carolina is a 53-year-old female lying supine in semi-recumbent in her hospital bed. Her in the room. She is in no acute distress. LUNGS: Clear to auscultation bilaterally. HEART: Regular rate and rhythm without murmur. ABDOMEN: Soft, nontender. No masses. LABORATORY DATA: Her white blood count 8.3, the hemoglobin is 13.6, it is down to 12.8 with IV fluids. Her platelet count was 321, it is now 296. Her BUN 17, creatinine 0.76, total bilirubin 0.4, AST 24, ALT slightly up at 69, alkaline phosphatase is slightly up at 135. Albumin is 3.9. Lipase less than 6. Troponin less than 4.0. EKG done in the ER. RADIOGRAPHIC STUDIES: A chest x-ray was unremarkable. A CT scan of the chest, abdomen and pelvis also negative. ASSESSMENT AND PLAN: Carolina is a 53-year-old female, who presents with what sounds like epigastric abdominal pain may be some lower chest pain with some nausea and melena. She has been admitted to the Internal Medicine Service. I have been asked to help with an upper endoscopy to rule out gastritis and/or peptic ulcer disease. I have reviewed this with Carolina in detail. She is very familiar with endoscopy. There is risk including, but not limited to gas bloating, crampy abdominal pain, bleeding, perforation requiring surgery, and misdiagnosis. More than likely, we will have an anesthesia provider to help us in this acute situation. She and her expressed understanding would like to proceed later this morning. Teresa Miller MD ALB/MODL /[id number] Electronically Signed By: TERESA MILLER MD 03/27/24 0958 PATIENT NAME: CAROLINA MONK CONSULTATION DATE OF : 66 REPORT #: [id number] PHYSICIAN: TERESA MILLER MD PCP: BLADIMIR MILLS [facility] REPORT IS CONFIDENTIAL AND NOT TO BE RELEASED WITHOUT AUTHORIZATION [address] [place] [address] Signed cc: Teresa Miller MD Chart Copies: TERESA MILLER MD ~ Electronically Signed By: TERESA MILLER MD 03/27/24 0958 PATIENT NAME: ALESHIACAROLINA PAGAN CONSULTATION DATE OF : 66 REPORT #: [id number] PHYSICIAN: TERESA MILLER MD PCP: BLADIMIR MILLS PAC REPORT IS CONFIDENTIAL AND NOT TO BE RELEASED WITHOUT AUTHORIZATION
--- NOTE | 2024-03-27 10:35 | NUR ---
Attempted to see pt, she has not returned from EGD at this time.
--- NOTE | 2024-03-27 10:37 | NUR ---
03/27/24 Clarisse Mills 1030 PT TO PACU ORAL AIRWAY IN PLACE O2 VIA MASK FOGGING NOTED IN MASK.
--- NOTE | 2024-03-27 11:15 | NUR ---
PT ARRIVES BACK TO MED-SURG ROOM 115 VIA GURNEY. PT SCOOTS SELF ONTO BED, TOLERATES THIS WELL. PT DROWSY, EASILY ROUSES TO VERBAL STIMULI. DENIES PAIN OR NAUSEA AT THIS TIME. VSS. SPOUSE AT BEDSIDE. CALL LIGHT IN REACH. PT REORIENTED TO ROOM.
[2024-03-27] MEDS ORDERED: FAMOTIDINE40 MG PO (11:27)
[2024-03-27] MEDS ORDERED: PHARMACY RENAL DOSE ADJUSTMENT 1 DOSE MISC PO SCH (12:00)
--- NOTE | 2024-03-27 12:14 | NUR ---
PT TOLERATED JUICE WELL, DENIES NAUSEA. LUNCH TRAY IN ROOM, PT EATS. DISCUSSED DISCHARGE PLAN WITH PT AND SPOUSE, BOTH VERBLIZE UNDERSTANDING.
[2024-03-27 13:09] LABS: BASOPHILS 0.7 % (0-2); EOSINOPHILS 2.1 % (0-6); HEMATOCRIT 39.4 % (35.0-50.0); LYMPHOCYTES 21.7 % (24-44); MONOCYTES 5.9 % (0-12); NEUTROPHILS 69.6 % (39-80); PLATELET COUNT 306 K/uL (140-440); RBC 4.34 M/ul (4.3-5.7)
--- NOTE | 2024-03-27 13:10 | NUR ---
IV REMOVED, TIP INTACT, GAUZE AND COBAN DRESSING APPLIED TO SITE, PT TOLERATED WELL. PT DENEIS NAUSEA AT THIS, REPORTS PAIN TOLERABLE. VSS. PT DRESSES SELF. DISCUSSED DISCHARGE INSTRUCTIONS WITH PT AND SPOUSE, BOTH VERBALIZE UNDERSTANDING. PT LEAVES UNIT VIA WHEELCHAIR ESCORTED BY THIS RN TO PRIVATE CAR DRIVEN BY SPOUSE.
--- NOTE | 2024-03-27 14:30 | STRESS ---
[facility] [address] [place] [address] Signed DATE OF STUDY: PROCEDURE: EKG stress test SUMMARY REPORT: The patient was stressed according to Garrett protocol, achieved a work level of 7.0 METS. Resting heart rate was 77 beats per minute. Resting blood pressure 124/79 mmHg. Resting EKG showed normal sinus rhythm, otherwise within normal limits. The patient exercised only 6 minutes. Heart rate increased to 148 beats per minute representing 89% of maximal age predicted heart rate. Blood pressure increased to 154/91 mmHg. There was nonlimiting chest pain reported. No ischemic EKG changes were noted. CONCLUSION: 1. This is a maximal asymptomatic exercise EKG stress test with borderline average functional status. 2. No ischemic EKG changes. 3. Nonlimiting chest pain. 4. Intermediate risk stress test based on nonlimiting chest pain with Goff score of +2. Prosper Cerda MD MA/MODL /[id number] PATIENT NAME: CAROLINA MONK Stress test DATE OF : 66 PHYSICIAN: PROSPER CERDA MD REPORT #: [id number] REPORT IS CONFIDENTIAL AND NOT TO BE RELEASED WITHOUT AUTHORIZATION
--- NOTE | 2024-03-27 16:06 | OR ---
[facility] [address] [place], [place] [address] Signed DATE OF OPERATION: 03/27/2024 SURGEON: Teresa Miller MD PREOPERATIVE DIAGNOSES: 1. Epigastric abdominal pain. 2. Nausea. 3. Melena. 4. Celiac disease. POSTOPERATIVE DIAGNOSES: 1. Unremarkable upper endoscopy. 2. GE junction at 36 cm. PROCEDURE: EGD with CLOtest and biopsy of the duodenum, pyloric bulb and antrum. ESTIMATED BLOOD LOSS: None. INDICATIONS: Carolina is a 53-year-old female, who came into the emergency room with what was initially thought to be chest pain. It may actually be epigastric abdominal pain. Apparently, she has had some nausea and melena as well. Her cardiac evaluation was negative. She even had a stress test yesterday through the emergency room and that was negative. When she told the ER doctor about her melena, it was realized that maybe she was having an upper GI bleed. 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 Apparently, she has been under quite a bit of stress. The hemoglobin was good at 13.6. EKG and troponin levels all negative. Chest x-ray negative. CT scan of the chest, abdomen and pelvis all negative. She was admitted to the Internal Medicine service with respect to the above. I have been asked to see her as a local general surgeon on-call. She has been through multiple colonoscopies, in fact I just did a colonoscopy for her earlier this year. There were no significant changes. She has been through multiple upper and lower endoscopies with Dr. Holm. She was told she had celiac disease. She is fairly conscious of her gluten free diet. Otherwise, she seems to be fairly healthy. I saw her this morning here in the hospital. She is doing well. I reviewed the above findings with her. I gave her a brochure on upper endoscopy. We had reviewed the nature of the test. She understands there is risk including, but not limited to gas bloating, crampy abdominal pain, bleeding, perforation requiring surgery, and missed diagnosis. Given her acute Electronically Signed By: TERESA MILLER MD 03/27/24 1606 PATIENT NAME: CAROLINA MONK OPERATIVE REPORT DATE OF : 66 REPORT #: [id number] PHYSICIAN: TERESA MILLER MD PCP: BLADIMIR MILLS PAC REPORT IS CONFIDENTIAL AND NOT TO BE RELEASED WITHOUT AUTHORIZATION [facility] [address] [place] [id number] Signed situation, we did ask for monitored anesthesia care with propofol infusion and the potential for airway protection. She had expressed understanding, wished to proceed. PROCEDURE IN DETAIL: Carolina was taken into the endoscopy suite and placed in the supine semi-recumbent position. She was given monitored anesthesia care with propofol infusion per our nurse side piece coverer. A bite block was utilized for the case. The posterior oropharynx was anesthetized with lidocaine spray. The adult gastroscope was introduced and advanced out into the duodenum under direct visualization without difficulty. She had typical clean dark bilious fluid in the duodenum and part of her fundus. We saw no obvious abnormalities to the duodenal mucosa. We went ahead and took a biopsy from the duodenum because of history of celiac disease as well as her recent symptoms. We took an additional biopsy from the pyloric bulb and the antrum as well. We took a biopsy of the antrum also for CLOtest. There were no ulcerations in her pyloric bulb or stomach. Really no gastritis. Upon retroflexion of the scope, she had no additional pathology up around the cardia. We saw no hiatal hernia. The scope was withdrawn up through the area of the cardia and there was no gastric or esophageal varices. There is no stricture. The Z-line is more or less intact. No Booker's mucosa, no distal esophagitis. The middle and upper esophagus were unremarkable. After this, the gas was suctioned out and the gastroscope removed. Carolina tolerated the procedure quite well. RECOMMENDATIONS: Carolina will be returning to her room and started on clear liquid diet. Teresa Miller MD ALB/MODL /[id number] cc: MD Bladimir Dee PA-C Electronically Signed By: TERESA MILLER MD 03/27/24 1606 PATIENT NAME: CAROLINA MONK OPERATIVE REPORT DATE OF : 66 REPORT #: [id number] PHYSICIAN: TERESA MILLER MD PCP: BLADIMIR MILLS REPORT IS CONFIDENTIAL AND NOT TO BE RELEASED WITHOUT AUTHORIZATION [address] [address] Signed Copies: TERESA MILLER MD ~ Electronically Signed By: TERESA MILLER MD 03/27/24 1606 PATIENT NAME: CAROLINA MONK OPERATIVE REPORT DATE OF : 66 REPORT #: [id number] PHYSICIAN: TERESA MILLER MD PCP: BLADIMIR MILLS PAC REPORT IS CONFIDENTIAL AND NOT TO BE RELEASED WITHOUT AUTHORIZATION
[2024-03-29 06:39] LABS: MYCOPHENOLIC ACID GLUCURONIDE <5.0 ug/mL (35.0-100.0); MYCOPHENOLIC ACID HPLC-MS/MS <0.5 ug/mL (1.0-3.5)
--- NOTE | 2024-03-30 12:21 | PATH ---
[facility] [address] [facility] [place], [place] [address] Signed SPECIMEN(S): A DUODENAL BIOPSY SPECIMEN(S): B PYLORIC BULB BIOPSY SPECIMEN(S): C ANTRUM BIOPSY SPECIMEN SOURCE: A. DUODENAL BIOPSY B. PYLORIC BULB BIOPSY C. ANTRUM BIOPSY CLINICAL HISTORY: Melena; history of celiac disease. FINAL PATHOLOGIC DIAGNOSIS: A. Duodenum, biopsy: - Duodenal mucosa with increased intraepithelial lymphocytes and preserved villous architecture, see comment B. Pyloric bulb, biopsy: - Duodenal mucosa with increased intraepithelial lymphocytes and preserved villous architecture, see comment C. Stomach, antrum, biopsy: - Gastric antral mucosa with no significant pathologic changes - Negative for Helicobacter pylori with HE stains COMMENT: For parts A and B, these findings are nonspecific and have been described in association with a variety of conditions including mild celiac disease, other food sensitivities, certain infections (includingHelicobactergastritis), certain medications (including NSAIDs), peptic injury, inflammatory bowel disease, immunodeficiencies, and systemic autoimmune disorders. In many cases, no specific cause is identified. Clinical correlation is needed. BRP MICROSCOPIC EXAMINATION: Histologic sections of all submitted blocks are examined by light microscopy. These findings, together with the gross examination, support the pathologic diagnosis. GROSS DESCRIPTION: A. The specimen, labeled and designated "Zoe Mitchell, duodenal biopsy," is received in formalin and consists of two alvarez soft tissue fragments, ranging PATIENT NAME: CAROLINA IMTCHELL PATHOLOGY DATE OF : 66 REPORT #: [id number] PHYSICIAN: MARTIN JNESEN PCP: BLADIMIR MILLS PAC REPORT IS CONFIDENTIAL AND NOT TO BE RELEASED WITHOUT AUTHORIZATION [facility] [address] [place], [place] [address] Signed from 0.1 x 0.4 cm. Entirely submitted in (A1). B. The specimen, labeled and designated "Mitchell, K, pyloric bulb biopsy," is received in formalin and consists of one alvarez soft tissue fragment, 0.4 cm. Entirely submitted in (B1). C. The specimen, labeled and designated "Mitchell, K, antrum biopsy," is received in formalin and consists of one alvarez soft tissue fragment, 0.5 cm. Entirely submitted in (C1). HS (under the direct supervision of a pathologist) The Gross Description was prepared using a voice recognition system. The report was reviewed for accuracy; however, sound-alike word errors, addition and/or deletions may occur. If there is any question about this report, please contact Client Services. ADDITIONAL NOTES: Immunohistochemical and/or in situ hybridization studies if performed in this case included appropriate positive controls that reacted as expected. This test was developed and its performance characteristics determined by [facility]. It has not been cleared or approved by the U.S. Food and Drug Administration. The FDA has determined that such clearance or approval is not necessary. This test is used for clinical purposes. It should not be regarded as investigational or for research. [facility] is certified under the Clinical Laboratory Improvement Amendments of 1988 (CLIA) as qualified to perform high complexity clinical laboratory testing. PERFORMING LABORATORY: Technical component was performed by [facility], [address] [place] [address] (CLIA# [id number]). Professional interpretation was performed by [facility], [address] [address] (CLIA# [id number]). Diagnostician: Casey Moss MD Pathologist Electronically Signed 03/30/2024 Copies: ~ PATIENT NAME: CAROLINA MITCHELL PATHOLOGY DATE OF : 66 REPORT #: [id number] PHYSICIAN: MARTIN JENSEN PCP: BLADIMIR MILLS PAC REPORT IS CONFIDENTIAL AND NOT TO BE RELEASED WITHOUT AUTHORIZATION
== END 2024-03-27 13:11 | disposition home or self-care (01) ==
LOC: ED 11:15 → MS 11:17
PROVIDERS: Colon & Rectal Surgery; Emergency Medicine; ADMIT Family Medicine; ATTEND Family Medicine
PROC: 0DB68ZX Excision of Stomach, Via Natural or Artificial Opening Endoscopic, Diagnostic (ICD-10-PCS; 2024-03-27)
PROC: 0DB98ZX Excision of Duodenum, Via Natural or Artificial Opening Endoscopic, Diagnostic (ICD-10-PCS; principal; 2024-03-27 10:00)
DX: K31.89 Other diseases of stomach and duodenum (principal); K21.9 Gastro-esophageal reflux disease without esophagitis; K92.1 Melena; R07.89 Other chest pain; E66.9 Obesity, unspecified; Z68.30 Body mass index [BMI] 30.0-30.9, adult; R91.1 Solitary pulmonary nodule; J30.2 Other seasonal allergic rhinitis; Z87.19 Personal history of other diseases of the digestive system; Z88.5 Allergy status to narcotic agent; Z91.018 Allergy to other foods
CPT/HCPCS: 00813; 36415; 71045; 71275; 74177; 80053; 80180; 83690; 83735; 84484; 85025; 87077; 93005; 93010; 93017; 94762; 96374; 96375; 96376; A9270; G0378; J1170; J2270; J2470; J2704; J3480; Q9967

== ENCOUNTER 2025-02-02 15:19 | Emergency (ER) | payer OTHER ==
[~2025-02-02] VITALS: Ht 170.2 cm; Wt 82.0 kg
[~2025-02-02 15:19] MED LIST changes: +CLARITIN10 M2 PO; +CLARITIN10 MG PO; +FAMOTIDINE40 MG PO
--- OUTSIDE RECORDS SUMMARY | 2025-02-02 15:26 | XMS ---
PreManage Notification: CAROLINA MONK Security Business Area Manager Events No recent Security Events currently on file CRITERIA MET - Group Notification CARE PROVIDERS There are no care providers on record at this time. Uma has no Care Guidelines for this patient. Luanne VISIT COUNT (12 MO.) 2 MANA Macias TOTAL 2 NOTE: Visits indicate total known visits. ED/UCC VISIT TRACKING (12 MO.) 02/02/2025 15:20 MANA Pérez OR TYPE: Emergency COMPLAINT: - ABDOMINAL PAIN 03/26/2024 11:16 MANA Pérez OR TYPE: Emergency COMPLAINT: - CHEST PAIN INPATIENT VISIT TRACKING (12 MO.) 03/26/2024 11:17 MANA Pérez OR TYPE: Observation COMPLAINT: - PUD, MELENA SUSPECTED3 DIAGNOSES: - Allergy status to narcotic agent - Allergy to other foods - Body mass index [BMI] 30.0-30.9, adult - Epigastric pain - Gastro-esophageal reflux disease without esophagitis - Melena - Nausea with vomiting, unspecified - Obesity, unspecified - Other chest pain - Other diseases of stomach and duodenum - Other seasonal allergic rhinitis - Personal history of other diseases of the digestive system - Solitary pulmonary nodule [email or web address]
[2025-02-02] MEDS ORDERED: TOPIRAMATE25 MG PO (15:55)
[2025-02-02] MEDS ORDERED: ondansetron HCL 4 MG/2 ML VIAL IV ONE (16:00)
[2025-02-02 16:07] LABS: BASOPHILS 0.8 % (0.1-1.2); EOSINOPHILS 3.9 % (0.7-5.8); HEMATOCRIT 41.9 % (34.1-44.9); HEMOGLOBIN 14.1 g/dL (11.2-15.7); LYMPHOCYTES 30.5 % (19.3-51.7); MCH 30.9 PG (25.6-32.2); MCHC 33.7 g/dL (32.2-35.5); MCV 91.9 fL (79.4-94.8); MONOCYTES 7.2 % (4.7-12.5); NEUTROPHILS 57.3 % (34.0-71.1); PLATELET COUNT 308 K/uL (182-369); RBC 4.56 M/uL (3.93-5.22)
[2025-02-02 16:23] LABS: ALBUMIN 3.9 g/dL (3.4-5.0); ALBUMIN/GLOBULIN RATIO 1.15 (1.1-2.4); ANION GAP 14.9 (7-21); BILIRUBIN, TOTAL 0.4 mg/dL (0.2-1.0); BUN/CREATININE RATIO 16.84 (6.0-28.6); CALCIUM 9.1 mg/dL (8.5-10.1); CREATININE, SERUM 0.95 mg/dL (0.55-1.02); POTASSIUM 3.9 mmol/L (3.5-5.1); PROTEIN, TOTAL 7.3 g/dL (6.4-8.2)
[2025-02-02 16:49] LABS: BILIRUBIN, URINE NEGATIVE (negative); BLOOD/HGB, URINE NEGATIVE (Negative); KETONE, URINE NEGATIVE (Negative); LEUK ESTERASE, URINE NEGATIVE (negative); NITRITE, URINE NEGATIVE (negative)
[2025-02-02] MEDS ORDERED: ONDANSETRON ODT4 MG PO (18:28)
[2025-02-02] MEDS ORDERED: IBU600 MG PO (18:28)
[2025-02-02] MEDS ORDERED: KETOROLAC TROMETHAMINE 15 MG/ML VIAL IV ONE (18:30)
[2025-02-02 19:15] VITALS: BP 111/80
== END 2025-02-02 19:15 | disposition home or self-care (01) ==
LOC: ED 15:19
PROVIDERS: Emergency Medicine
DX: K63.89 Other specified diseases of intestine (principal); J45.909 Unspecified asthma, uncomplicated; Z79.899 Other long term (current) drug therapy; Z91.018 Allergy to other foods; Z88.5 Allergy status to narcotic agent
CPT/HCPCS: 36415; 74177; 80053; 81003; 83690; 85025; 93971; 96375; 99284-25; J1885; J2405; Q9967

== ENCOUNTER 2025-03-08 09:18 | Day surgery (SDC) | payer OTHER ==
[~2025-03-08] VITALS: Ht 170.2 cm; Wt 84.0 kg
--- NOTE | ~2025-03-08 | OR ---
[facility] [address] [facility] [place], [place] [address] Draft DATE OF OPERATION: 03/08/2025 SURGEON: Allen Duran DO PREOPERATIVE DIAGNOSIS: Lower abdominal pain. POSTOPERATIVE DIAGNOSIS: Lower abdominal pain with diverticulosis. PROCEDURE PERFORMED: Colonoscopy. ANESTHESIA: IV sedation. ESTIMATED BLOOD LOSS: None. DRAINS: None. COMPLICATIONS: None. DESCRIPTION OF PROCEDURE: The patient was brought to the GI lab, placed in the supine position. After induction of IV sedation, the patient was then placed in a left lateral position and padded to the satisfaction of anesthesia. Olympus video colonoscope was then introduced into the anal opening under direct visualization. While insufflating and moving, the scope was then moved from the rectosigmoid, sigmoid colon, descending colon, transverse colon, ascending colon into the cecum. The scope was then withdrawn slowly as the mucosal surfaces were then further inspected. Some scattered diverticula noted in the cecum or in the ascending colon distally, but no intrinsic or extrinsic masses were appreciated. Now, the scope was brought back into the hepatic flexure into the transverse colon. Some scattered diverticula were noted, but no intrinsic or extrinsic masses. No other lesions or ulceration were appreciated. Scope was brought back and passed the splenic flexure into the descending colon. Scattered diverticula noted, but no other intrinsic or extrinsic masses were noted. No other lesions or ulcerations were noted. The scope was brought back into the sigmoid colon where further diverticula were noted, but no PATIENT NAME: CAROLINA MONK OPERATIVE REPORT DATE OF : 66 REPORT #: [id number] PHYSICIAN: ALLEN DURAN DO PCP: BLADIMIR MILLS PAC REPORT IS CONFIDENTIAL AND NOT TO BE RELEASED WITHOUT AUTHORIZATION [address] [place] [address] Draft evidence of diverticulitis was appreciated. Otherwise, no intrinsic or extrinsic masses, no lesions or ulceration were appreciated. The scope was brought back into the rectosigmoid. Scattered diverticula noted here as well, but no other intrinsic or extrinsic masses were appreciated. The rectal vault was unremarkable. The scope was removed. The patient tolerated the procedure well, went to recovery in satisfactory condition. DO JR Corbett/VÍCTOR /[id number] Copies: ~ PATIENT NAME: CAROLINA MONK OPERATIVE REPORT DATE OF : 66 REPORT #: [id number] PHYSICIAN: ALLEN DURAN DO PCP: BLADIMIR MILLS PAC REPORT IS CONFIDENTIAL AND NOT TO BE RELEASED WITHOUT AUTHORIZATION
[~2025-03-08 09:18] MED LIST changes: +IBLOOD GLUCOSE TEST STRIP 1 EA TEST VI PRN; +IBU600 MG PO; +LACTATED RINGER'S 1,000 ML IV SCH; +LIDOCAINE HCL 1% 5 ML SDV INJ ONE; +ONDANSETRON ODT4 MG PO; +TOPIRAMATE25 MG PO; +TYLENOL325 MG PO
[2025-03-08 09:29] VITALS: BP 113/74
[2025-03-08] MEDS ORDERED: LIDOCAINE HCL 2% 5 ML SDV ONE (10:37)
--- NOTE | 2025-03-08 11:01 | NUR ---
03/08/25 1101 Brooklynn Marquez PATIENT REPORTS ABDOMINAL PAIN AND STATES IT IS AT HER BASELINE LEVEL.
[2025-03-08 11:39] VITALS: BP 128/85
== END 2025-03-08 11:46 | disposition home or self-care (01) ==
LOC: DS 09:18
PROVIDERS: ATTEND Surgery
PROC: 0DJD8ZZ Inspection of Lower Intestinal Tract, Via Natural or Artificial Opening Endoscopic (ICD-10-PCS; principal; 2025-03-08 10:30)
DX: K57.30 Diverticulosis of large intestine without perforation or abscess without bleeding (principal); Z86.0100 Personal history of colon polyps, unspecified
CPT/HCPCS: J2003; J2704; J7121

== ENCOUNTER 2025-04-09 06:57 | Emergency (ER) | payer OTHER ==
[~2025-04-09] VITALS: Ht 170.2 cm; Wt 85.0 kg
[~2025-04-09 06:57] MED LIST changes: -IBLOOD GLUCOSE TEST STRIP 1 EA TEST VI PRN; -LACTATED RINGER'S 1,000 ML IV SCH; -LIDOCAINE HCL 1% 5 ML SDV INJ ONE
--- OUTSIDE RECORDS SUMMARY | 2025-04-09 07:01 | XMS ---
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 Uma has no Care Guidelines for this patient. Luanne VISIT COUNT (12 MO.) 2 MANA Macias TOTAL 2 NOTE: Visits indicate total known visits. ED/UCC VISIT TRACKING (12 MO.) 04/09/2025 06:58 MANA Pérez OR TYPE: Emergency COMPLAINT: - ABDOMINAL PAIN 02/02/2025 15:20 MANA Pérez OR TYPE: Emergency COMPLAINT: - ABDOMINAL PAIN DIAGNOSES: - Allergy status to narcotic agent - Allergy to other foods - Other senior living (current) drug therapy - Other specified diseases of intestine - Unspecified abdominal pain - Unspecified asthma, uncomplicated INPATIENT VISIT TRACKING (12 MO.) No inpatient visits to display in this time frame [email or web address]
[2025-04-09] MEDS ORDERED: SODIUM CHLORIDE 0.9% 1,000 ML IV ONE (07:15)
[2025-04-09] MEDS ORDERED: HYDROmorphone HCL 1 MG/ML SYR IV PRN (07:15)
[2025-04-09 07:19] LABS: BASOPHILS 0.7 % (0.1-1.2); EOSINOPHILS 4.1 % (0.7-5.8); LYMPHOCYTES 21.0 % (19.3-51.7); MCH 30.5 PG (25.6-32.2); MCHC 33.9 g/dL (32.2-35.5); MCV 89.9 fL (79.4-94.8); MONOCYTES 7.7 % (4.7-12.5); NEUTROPHILS 66.2 % (34.0-71.1); RBC 4.56 M/uL (3.93-5.22)
[2025-04-09 07:29] LABS: ALT (SGPT) 53.0 U/L (14-59); AST (SGOT) 21.0 U/L (15-37); GLOMERULAR FILTRATION RATE,EST 86.0 mL/min (>60); PROTEIN, TOTAL 7.0 g/dL (6.4-8.2); UREA NITROGEN 18.0 mg/dL (7-18)
[2025-04-09] MEDS ORDERED: KETOROLAC TROMETHAMINE 30 MG/ML VIAL IV ONE (09:00)
[2025-04-09 09:05] LABS: BLOOD/HGB, URINE NEGATIVE (Negative); KETONE, URINE NEGATIVE (Negative); LEUK ESTERASE, URINE NEGATIVE (negative); NITRITE, URINE NEGATIVE (negative)
[2025-04-09] MEDS ORDERED: HYDROCODONE/ACETA 5/325 TAB PO ONE (09:45)
[2025-04-09] MEDS ORDERED: NEURONTIN300 MG PO (12:44)
[2025-04-09] MEDS ORDERED: HYDROCODON-ACE1 EA10 PO (12:44)
[2025-04-10 11:55] VITALS: BP 131/66
--- NOTE | 2025-04-10 12:09 | NUR ---
1150: PER LIGHT ARMORED RECONNAISSANCE OFFICER, PATIENT CAN DISCHARGE HOME AFTER VITALS AND IV REMOVAL. 1155: VS CHECKED. 1158: IV DC'D WNL. TIP INTACT. DRESSING APPLIED. PATIENT EDUCATED NOT TO DRIVE FOR 24 HOURS. PATIENT VERBALIZES UNDERSTANDING. 1200: PATIENT DISCHARGED TO HOME AMBULATORY WITH SIGNIFICANT OTHER. PATIENT DECLINED WHEELCHAIR RIDE.
== END 2025-04-09 12:52 | disposition home or self-care (01) ==
LOC: ED 06:57 → OPV-DS 04-10 10:12 → ED 04-10 10:12
PROVIDERS: Emergency Medicine
DX: R10.32 Left lower quadrant pain (principal); J45.909 Unspecified asthma, uncomplicated; Z90.710 Acquired absence of both cervix and uterus; Z88.5 Allergy status to narcotic agent; Z91.018 Allergy to other foods; Z79.899 Other long term (current) drug therapy
CPT/HCPCS: 36415; 74177; 80053; 81003; 85025; 96361; 96374; 96375; 96376; 99284-25; J1171; J1885; J2405; J7030; Q9967

== ENCOUNTER 2025-04-12 08:36 | Emergency (ER) | payer OTHER ==
[~2025-04-12] VITALS: Ht 170.2 cm; Wt 85.0 kg
[~2025-04-12 08:36] MED LIST changes: +NEURONTIN300 MG PO
--- OUTSIDE RECORDS SUMMARY | 2025-04-12 08:41 | XMS ---
PreManage Notification: CAROLINA MONK Security Routing Equipment Tender Events No recent Security Events currently on file CRITERIA MET - Group Notification CARE PROVIDERS There are no care providers on record at this time. Uma has no Care Guidelines for this patient. Luanne VISIT COUNT (12 MO.) 2 MANA Macias TOTAL 2 NOTE: Visits indicate total known visits. ED/UCC VISIT TRACKING (12 MO.) 04/12/2025 08:37 MANA Pérez OR TYPE: Emergency COMPLAINT: - ABDOMINAL PAIN 02/02/2025 15:20 MANA Pérez OR TYPE: Emergency COMPLAINT: - ABDOMINAL PAIN DIAGNOSES: - Allergy status to narcotic agent - Allergy to other foods - Other [facility] (current) drug therapy - Other specified diseases of intestine - Unspecified abdominal pain - Unspecified asthma, uncomplicated INPATIENT VISIT TRACKING (12 MO.) No inpatient visits to display in this time frame [email or web address]
[2025-04-12] MEDS ORDERED: ACYCLOVIR200 MG PO (09:43)
[2025-04-12] MEDS ORDERED: SODIUM CHLORIDE 0.9% 1,000 ML IV PRN (09:45)
[2025-04-12 09:58] LABS: BLOOD/HGB, URINE NEGATIVE (Negative); KETONE, URINE NEGATIVE (Negative); LEUK ESTERASE, URINE NEGATIVE (negative); NITRITE, URINE NEGATIVE (negative)
[2025-04-12 10:06] LABS: BACTERIA, URINE NONE SEEN /hpf (negative); CASTS, URINE NONE SEEN \\lpf; CRYSTALS, URINE NONE SEEN (0-1+); EPITHELIAL CELLS, URINE SQUAMOUS 1+ /lpf (0-1+); REFLEX CULTURE, URINE No (No)
[2025-04-12 10:16] LABS: BASOPHILS 0.5 % (0.1-1.2); EOSINOPHILS 1.9 % (0.7-5.8); LYMPHOCYTES 18.4 % (19.3-51.7); MCH 30.6 PG (25.6-32.2); MCHC 33.9 g/dL (32.2-35.5); MCV 90.1 fL (79.4-94.8); MONOCYTES 7.1 % (4.7-12.5); NEUTROPHILS 71.8 % (34.0-71.1); RBC 4.35 M/uL (3.93-5.22)
[2025-04-12 10:35] LABS: ALT (SGPT) 98.0 U/L (14-59); AST (SGOT) 40.0 U/L (15-37); GLOMERULAR FILTRATION RATE,EST 92.0 mL/min (>60); PROTEIN, TOTAL 6.9 g/dL (6.4-8.2); UREA NITROGEN 16.0 mg/dL (7-18)
[2025-04-12] MEDS ORDERED: OMEPRAZOLE20 MG PO (11:40)
[2025-04-12] MEDS ORDERED: PREDNISONE20 MG PO (11:40)
[2025-04-12 12:02] VITALS: BP 135/88
== END 2025-04-12 12:02 | disposition home or self-care (01) ==
LOC: ED 08:36
PROVIDERS: Emergency Medicine
DX: R10.32 Left lower quadrant pain (principal); Z88.5 Allergy status to narcotic agent; Z91.018 Allergy to other foods; Z79.899 Other long term (current) drug therapy; Z79.52 Long term (current) use of systemic steroids
CPT/HCPCS: 36415; 80053; 81001; 83690; 85025; 96374; 99284-25; J1790; J7030

== ENCOUNTER 2025-04-25 05:45 | Day surgery (SDC) | payer OTHER ==
[~2025-04-25] VITALS: Ht 170.2 cm; Wt 85.0 kg
[~2025-04-25 05:45] MED LIST changes: +ACYCLOVIR200 MG PO; +LACTATED RINGER'S 1,000 ML IV SCH; +OMEPRAZOLE20 MG PO
[2025-04-25 06:03] VITALS: BP 113/86
[2025-04-25] MEDS ORDERED: VITAMIN B121000 MCG PO (06:11)
[2025-04-25] MEDS ORDERED: BUPIVACAINE HCL 0.5% 30 ML VIAL ONE (06:52)
[2025-04-25] MEDS ORDERED: IBLOOD GLUCOSE TEST STRIP 1 EA TEST VI PRN ×2 (07:00→07:30)
[2025-04-25] MEDS ORDERED: CEFAZOLIN SODIUM 2 GM in SODIUM CHLORIDE 0.9% 100 ML IV SCH (07:00)
[2025-04-25] MEDS ORDERED: LIDOCAINE HCL 1% 5 ML SDV INJ ONE (07:00)
[2025-04-25] MEDS ORDERED: LIDOCAINE HCL 2% 5 ML SDV ONE (07:02)
[2025-04-25] MEDS ORDERED: ROCURONIUM BROMIDE 50 MG/5 ML SYR ONE (07:02)
[2025-04-25] MEDS ORDERED: SUGAMMADEX SODIUM 200 MG/2 ML ML ONE (07:02)
[2025-04-25] MEDS ORDERED: KETAMINE in NS 50 MG/5 ML SYR ONE (07:03)
[2025-04-25] MEDS ORDERED: MIDAZOLAM HCL 2 MG/2 ML VIAL ONE (07:03)
[2025-04-25] MEDS ORDERED: fentaNYL citrate 100 MCG/2 ML VIAL ONE (07:03)
[2025-04-25] MEDS ORDERED: DEXAMETHASONE SOD PHOS 4 MG/ML VIAL ONE (07:03)
[2025-04-25] MEDS ORDERED: KETOROLAC TROMETHAMINE 30 MG/ML VIAL ONE (07:03)
[2025-04-25] MEDS ORDERED: LIDOCAINE HCL 1% 30 ML SDV ONE (07:04)
[2025-04-25] MEDS ORDERED: ACETAMINOPHEN 1,000 MG/100 ML VIAL ONE (07:04)
[2025-04-25] MEDS ORDERED: MIDAZOLAM HCL 2 MG/2 ML VIAL IV PRN (07:30)
[2025-04-25] MEDS ORDERED: NALOXONE HCL 0.4 MG SYR IV PRN (07:30)
[2025-04-25] MEDS ORDERED: fentaNYL citrate 50 MCG/ML SDV IV PRN (07:30)
[2025-04-25] MEDS ORDERED: ESMOLOL HCL 100 MG/10 ML VIAL IV ONE (07:44)
[2025-04-25] MEDS ORDERED: SODIUM CHLORIDE 0.9% 20 ML IV ONE (07:45)
[2025-04-25] MEDS ORDERED: SEVOFLURANE 250 ML BTL INH ONE (07:57)
[2025-04-25] MEDS ORDERED: LACTATED RINGER'S 1,000 ML IV ONE (08:10)
[2025-04-25] MEDS ORDERED: FAMOTIDINE 20 MG/ 2 ML VIAL ONE (08:34)
--- NOTE | 2025-04-25 08:52 | NUR ---
04/25/25 0852 Shannan Iyer 0846-PATIENT ARRIVED TO PACU ON 6L MASK NONAROUSABLE ORAL AIRWAY IN PLACE. 4 LAP SITES TO ABDOMEN INTACT. SR HR 90'S. 0847-PATIENT BECOMING REACTIVE TO VERBAL STIMULI BRITTNEY CHECK EMBOSSER REMOVED ORAL AIRWAY.
--- NOTE | 2025-04-25 09:37 | NUR ---
0962 VERBAL ORDER FROM BRITTNEY DANIELLE FOR 4 MG OF ZOFRAN IV ONCE NOW FOR PT NAUSEA
[2025-04-25 09:46] VITALS: BP 116/74
--- NOTE | 2025-04-25 09:53 | NUR ---
09 PT ARRIVED TO DAY SURGERY FROM PACU VIA STREACHER. REPORT TAKEN FROM MARTHA COHEN. PT DROWSEY BUT ANSWERS QUESTIONS. PT SPOUSE AND BEST FRIEND IN ROOM. PT REPORTS NO PAIN AT THIS TIME. IV ASSESSED AND VITALS TAKEN. 929 PT BECOMES NAUSOUS AT THIS TIME. EMESIS BAG IN HAND. PT DOES NOT THROW UP ANY CONTENTS. 37 SPOKE WITH ENGRAVED ROLLER INSPECTOR. BRITTNEY VERBAL ORDER TAKEN, SEE OTHER NOTES. 39 RN ENTERS ROOM AND PT HAS NEW EMESIS BAG WITH SPOUSE AND NOEL SALINAS AT BEDSIDE. PT HAS VOMITIED 50 MLS OF BILIOUS LIQUID INTO EMESIS BAG. ZOFRAN GIVEN, SEE EMAR. 0945 RN IN ROOM, PT HAS BECOME LESS NAUSEATED AFTER MEDICATIONS. PT BEST FRIEND AND SPOUSE IN ROOM. CALL LIGHT WITHIN REACH. PT HAS WATER AND CRACKERS AT BEDSIDE.
--- NOTE | 2025-04-25 10:23 | NUR ---
[address] ABOUT PAIN MEDCIATON FOR PT IF PAINFUL. DR GIVES VERBAL ORDER OFR 5 MG OXYCODONE PO Q4H NEEDED FOR PAIN.
[2025-04-25] MEDS ORDERED: OXYCODONE HCL 5 MG TAB PO PRN (10:30)
[2025-04-25 10:35] VITALS: BP 113/77
--- NOTE | 2025-04-25 11:05 | NUR ---
1104 pain medication given per emar. pt reporting 6/10 pain at this time. pt rerporting no nausea at this time. pt has spouse and best friend in room at bedside. pt has call light within reach.
--- NOTE | 2025-04-25 11:15 | NUR ---
1110 PT REQUESTING TO AMBULATE TO BATHROOM. PT ABLE TO AMBULATE TO BATHROOM, PT SLIGHLY UNSTEADY ON FEET, PT HOLDS ONTO RNS ARM TO STEADY SELF WALKING. PT ABLE TO VOID 400 MLS OF CLEAR YELLOW URINE. PT ABLE TO AMBULATE BACK TO ROOM WITHOUT HOLDING ONTO RN, PT MUCH STEADIER ON FEET ON THE WALK BACK TO PT ROOM. PT BACK IN BED WITH CALL LIGHT WITHIN REACH. PT IS GOING TO STAY FOR MINIMUM 20 MINUTES LONGER DUE TO PAIN MEDICATION BEING GIVEN. PT AGREEABLE TO THIS PLAN. PT HAS SPOUSE AND BEST FRIEND IN ROOM.
[2025-04-25 11:23] VITALS: BP 111/69
--- NOTE | 2025-04-25 11:57 | NUR ---
1130 VITALS DONE. DISCHARGE INFORMATION GONE OVER WITH PT, PT SPOUSE AND BEST FRIEND. NO QUESTIONS AT THIS TIME. PT REPORTING TOLERABLE 4/10 PAIN. PT REPORTING NO NAUSEA AT THIS TIME. 1135 IV DISCONTINUED FOR DISCHARGE. PT GETTING DRESSED WITH PT SPOUSE'S ASSISTANCE. 1146 PT DRESSED AND READY TO GO. PT SPOUSE OUT TO GET CAR. PT ABLE TO AMBULATE WITHOUT ASSISTANCE TO WHEELCHAIR. PT WHEELED TO THE FRONT OF THE HOSPITAL WITH DISCHARGE INFO IN HAND, AND PERSONAL BELONGINGS IN LAP.
--- NOTE | 2025-04-30 15:59 | PATH ---
[facility] [address] [place], [place] [address] Signed SPECIMEN(S): A NECROTIC SIGMOID EPIPLOIC APPENDICITIS SPECIMEN SOURCE: A. NECROTIC SIGMOID EPIPLOIC APPENDICITIS CLINICAL HISTORY: Abdominal pain FINAL PATHOLOGIC DIAGNOSIS: Necrotic sigmoid epiploic appendages: - Fragments of necrotic adipose tissue with focal fibrosis and acute inflammation. - Focal calcification. - Negative for atypical features. MICROSCOPIC EXAMINATION: Histologic sections of all submitted blocks are examined by light microscopy. These findings, together with the gross examination, support the pathologic diagnosis. GROSS DESCRIPTION: The specimen, labeled and designated "Mitchell, necrotic sigmoid epiploic appendages," is received in formalin and consists of three irregular shaped yellow-alvarez, soft to firm tissue fragments that aggregate measure 3.3 x 2.5 x 0.8 cm. Sectioning through the specimen reveal yellow-alvarez, partially calcified tissue. Specimen is left for decalcification in Immunocal prior to processing. [employer] sections are submitted in (A1). JS (under the direct supervision of a pathologist) The Gross Description was prepared using a voice recognition system. The report was reviewed for accuracy; however, sound-alike word errors, addition and/or deletions may occur. If there is any question about this report, please contact Client Services. PERFORMING LABORATORY: Technical component was performed by [facility], [address] [place] [id number] (CLIA# [id number]). Professional interpretation was performed by [email or web address] - [facility], [address] [place] [address], [place] [address] (CLIA#: [id number]). Diagnostician: Barry Su MD PATIENT NAME: CAROLINA MITCHELL PATHOLOGY DATE OF : 66 REPORT #: [id number] PHYSICIAN: [facility] PCP: BLADIMIR MILLS PAC REPORT IS CONFIDENTIAL AND NOT TO BE RELEASED WITHOUT AUTHORIZATION [address] [address] Signed Pathologist Electronically Signed 04/30/2025 Copies: ~ PATIENT NAME: CAROLINA MITCHELL PATHOLOGY DATE OF : 66 REPORT #: [id number] PHYSICIAN: MARTIN PATHOLOG[facility] PCP: BLADIMIR MILLS PAC REPORT IS CONFIDENTIAL AND NOT TO BE RELEASED WITHOUT AUTHORIZATION
== END 2025-04-25 11:46 | disposition home or self-care (01) ==
LOC: DS 05:45
PROVIDERS: ATTEND Surgery
PROC: 0DBU4ZZ Excision of Omentum, Percutaneous Endoscopic Approach (ICD-10-PCS; principal; 2025-04-25 07:30)
DX: K63.89 Other specified diseases of intestine (principal); Z88.5 Allergy status to narcotic agent; Z91.010 Allergy to peanuts; Z87.891 Personal history of nicotine dependence
CPT/HCPCS: 00790; A9270; J0131; J0688; J1100; J1885; J2003; J2250; J2405; J2704; J3010; J3490; J7121

== ENCOUNTER 2025-05-17 14:19 | Emergency (ER) | payer OTHER ==
[~2025-05-17] VITALS: Ht 170.2 cm; Wt 81.7 kg
--- OUTSIDE RECORDS SUMMARY | ~2025-05-17 | XMS | Continuity of Care Document ---
Demographics + + + | Address | [address] | | | [place] [address] | + + + | Preferred Language | Unknown | + + + | Marital Status | | + + + | Scientology Affiliation | Unknown | + + + | Race | White | + + + | Ethnic Group | Not or | + + + Author + + + | Author | [facility] | + + + | Organization | [facility] | + + + | Address | [address] | | | [place] [address] | + + + | Phone | | + + + Care Team Providers + + + + | Care Physical Sciences Professor Name | Role | Phone | + + + + Unavailable | Unavailable | + + + + Unavailable | Unavailable | + + + + Allergies No information. Encounters No information. Functional Status No information. Immunizations No information. Medications + + + + | date | description | facility | + + + + | (no date) | DIPHENHYDRAMINE HCL | [facility] | | | | [facility] | + + + + | 2025-04-09 00:00 | GABAPENTIN | [facility] | | | | [facility] | + + + + | (no date) | ALBUTEROL SULFATE | [facility] | | | | [facility] | + + + + | (no date) | ACYCLOVIR | [facility] | | | | [facility] | + + + + | 2025-04-12 00:00 | OMEPRAZOLE | [facility] | | | | [facility] | + + + + | (no date) | TOPIRAMATE | [facility] | | | | [facility] | + + + + | (no date) | LORATADINE | [facility] | | | | [facility] | + + + + | (no date) | Cyanocobalamin (Vitamin | [facility] | | | B-12) | [facility] | + + + + | 2025-04-12 00:00 | predniSONE | [facility] | | | | [facility] | + + + + | (no date) | ACETAMINOPHEN | [facility] | | | | [facility] | + + + + | (no date) | SUCRALFATE | [facility] | | | | [facility] | + + + + | 2025-04-09 00:00 | HYDROCODONE | [facility] | | | BIT/ACETAMINOPHEN | [facility] | + + + + | (no date) | ALBUTEROL SULFATE | [facility] | | | | [facility] | + + + + | (no date) | FEXOFENADINE HCL | [facility] | | | | [facility] | + + + + | (no date) | FEXOFENADINE HCL | [facility] | | | | [facility] | + + + + Problems No information. Procedures No information. Results/Labs +--------+--------+ +---------+--------+---------+ | test | date | facility | value | unit | notes | +--------+--------+ +---------+--------+---------+ + + | Result panel 1 | + + + + + + + + + | Color Ur | 2025-04-12 | | YELLOW | (missing) | (missing) | | Auto | 09:50:07 | [facility] | | | | + + + + + + + + + | Result panel 2 | + + + + + +---------+ + + | Character | 2025-04-12 | | CLEAR | (missing) | (missing) | | Ur | 09:50:07 | [facility] | [facility] | | | | + + + +---------+ + + + + | Result panel 3 | + + + + + + + + + | Glucose Ur | 2025-04-12 | | NEGATIVE | (missing) | (missing) | | Ql Strip | 09:50:07 | [facility] | | | | + + + + + + + + + | Result panel 4 | + + + + + + + + + | Joann Ur | 2025-04-12 | | NEGATIVE | (missing) | (missing) | | Ql Strip | 09:50:07 | [facility] | | | [facility] | | | | + + + + + + + + + | Result panel 5 | + + + + + + + + + | Seymour Ur | 2025-04-12 | | NEGATIVE | (missing) | (missing) | | Ql Strip | 09:50:07 | [facility] | | | [facility] | | | | + + + + + + + + + | Result panel 6 | + + + + + +---------+ + + | Veto Pearl | 2025-04-12 | | 1.010 | (missing) | (missing) | | Strip | 09:50:07 | [facility] | | | [facility] | | | | + + + +---------+ + + + + | Result panel 7 | + + + + + + + + + | Hgb Ur Ql | 2025-04-12 | | NEGATIVE | (missing) | (missing) | | Strip | 09:50:07 | [facility] | | | [facility] | | | | + + + + + + + + + | Result panel 8 | + + + + + +-------+ + + | pH Ur Strip | 2025-04-12 | | 6.0 | (missing) | (missing) | | | 09:50:07 | [facility] | | | [facility] | | | | + + + +-------+ + + + + | Result panel 9 | + + + + + + + + + | Prot Ur | 2025-04-12 | | NEGATIVE | (missing) | (missing) | | Strip-mCmckenna | 09:50:07 | [facility] | | | | [facility] | | | | + + + + + + + + + | Result panel 10 | + + + + + + + + + | | 2025-04-12 | | NORMAL | (missing) | (missing) | | Urobilinogen | 09:50:07 | [facility] | | | | | Ur | [facility] | Strip-mCnc | | [facility] | | | | + + + + + + + + + | Result panel 11 | + + + + + + + + + | Nitrite Ur | 2025-04-12 | | NEGATIVE | (missing) | (missing) | | Ql Strip | 09:50:07 | [facility] | | | | | | | - | | | | | | | [facility] | | | | + + + + + + + + + | Result panel 12 | + + + + + + + + + | Leukocyte | 2025-04-12 | | NEGATIVE | (missing) | (missing) | | esterase Ur | 09:50:07 | [facility] | | | | | Ql Strip | [facility] | | | | + + + + + + + + + | Result panel 13 | + + + + + +-------+ + + | RBC #/area | 2025-04-12 | | 0-1 | (missing) | (missing) | | UrnS HPF | :50:07 | [facility] | | | | | [facility] | | | | + + + +-------+ + + + + | Result panel 14 | + + + + + +-------+ + + | WBC #/area | 2025-04-12 | | 2-3 | (missing) | (missing) | | UrnS HPF | 09:50:07 | [facility] | | | | | | [facility] | | | | + + + +-------+ + + + + | Result panel 15 | + + + + + + + + + | Epi Cells | 2025-04-12 | | SQUAMOUS 1+ | (missing) | (missing) | | #/area UrnS | 09:50:07 | [facility] | | | | | HPF | [facility] | | | | + + + + + + + + + | Result panel 16 | + + + + + + + + + | Crystals | 2025-04-12 | | NONE SEEN | (missing) | (missing) | | Fermin Micro | 09:50:07 | [facility] | | | | | | [facility] | | | | + + + + + + + + + | Result panel 17 | + + + + + + + + + | Bacteria | 2025-04-12 | | NONE SEEN | (missing) | (missing) | | #/area UrnS | 09:50:07 | [facility] | | | | | HPF | [facility] | | | | + + + + + + + + + | Result panel 18 | + + + + + + + + + | Casts | 2025-04-12 | | NONE SEEN | (missing) | (missing) | | #/area UrnS | 09:50:07 | [facility] | | | | | LPF | [facility] | | | | + + + + + + + + + | Result panel 19 | + + + + + +------+ + + | Bacteria Ur | 2025-04-12 | | No | (missing) | (missing) | | Cult | 09:50:07 | [facility] | | | | | | [facility] | | | | + + + +------+ + + + + | Result panel 20 | + + + + + + + + + | Urn Spec | 2025-04-12 | | CLEAN CATCH | (missing) | (missing) | | Collect Meth | 09:50:07 | [facility] | | | | | Ur | [facility] | | | | + + + + + + + + + | Result panel 21 | + + + + + + + + + | Color Ur | 2025-04-12 | | YELLOW | (missing) | (missing) | | Auto | 09:50:07 | [facility] | | | | | | [facility] | | | | + + + + + + + + + | Result panel 22 | + + + + + +---------+ + + | Character | 2025-04-12 | | CLEAR | (missing) | (missing) | | Ur | 09:50:07 | [facility] | | | | | | [facility] | | | | + + + +---------+ + + + + | Result panel 23 | + + + + + + + + + | Glucose Ur | 2025-04-12 | | NEGATIVE | (missing) | (missing) | | Ql Strip | 09:50:07 | [facility] | | | | | | [facility] | | | | + + + + + + + + + | Result panel 24 | + + + + + + + + + | Bilirub Ur | 2025-04-12 | | NEGATIVE | (missing) | (missing) | | Ql Strip | 09:50:07 | [facility] | | | | | | [facility] | | | | + + + + + + + + + | Result panel 25 | + + + + + + + + + | Ketones Ur | 2025-04-12 | | NEGATIVE | (missing) | (missing) | | Ql Strip | 09:50:07 | [facility] | | | | | | [facility] | | | | + + + + + + + + + | Result panel 26 | + + + + + +---------+ + + | Sp Joshua Ur | 2025-04-12 | | 1.010 | (missing) | (missing) | | Strip | 09:50:07 | [facility] | | | | | | [facility] | | | | + + + +---------+ + + + + | Result panel 27 | + + + + + + + + + | Dario Pearl Ql | 2025-04-12 | | NEGATIVE | (missing) | (missing) | | Strip | 09:50:07 | [facility] | | | | | | [facility] | | | | + + + + + + + + + | Result panel 28 | + + + + + +-------+ + + | pH Ur Strip | 2025-04-12 | | 6.0 | (missing) | (missing) | | | 09:50:07 | [facility] | | | | | | [facility] | | | | + + + +-------+ + + + + | Result panel 29 | + + + + + + + + + | Prot Ur | 2025-04-12 | | NEGATIVE | (missing) | (missing) | | Strip-mCnc | 09:50:07 | [facility] | | | | | | [facility] | | | | + + + + + + + + + | Result panel 30 | + + + + + + + + + | | 2025-04-12 | | NORMAL | (missing) | (missing) | | Urobilinogen | 09:50:07 | [facility] | | | | | Ur | [facility] | Strip-mCnc | | [facility] | | | | + + + + + + + + + | Result panel 31 | + + + + + + + + + | Nitrite Ur | 2025-04-12 | | NEGATIVE | (missing) | (missing) | | Ql Strip | 09:50:07 | [facility] | | | | | | [facility] | | | | + + + + + + + + + | Result panel 32 | + + + + + + + + + | Leukocyte | 2025-04-12 | | NEGATIVE | (missing) | (missing) | | esterase Ur | 09:50:07 | [facility] | | | | | Ql Strip | [facility] | | | | + + + + + + + + + | Result panel 33 | + + + + + +-------+ + + | RBC #/area | 2025-04-12 | | 0-1 | (missing) | (missing) | | UrnS HPF | 09:50:07 | [facility] | | | | | | [facility] | | | | + + + +-------+ + + + + | Result panel 34 | + + + + + +-------+ + + | WBC #/area | 2025-04-12 | | 2-3 | (missing) | (missing) | | UrnS HPF | :50:07 | [facility] | | | | | | [facility] | | | | + + + +-------+ + + + + | Result panel 35 | + + + + + + + + + | Epi Cells | 2025-04-12 | | SQUAMOUS 1+ | (missing) | (missing) | | #/area UrnS | 09:50:07 | [facility] | | | | | HPF | [facility] [place] [facility] | | | | + + + + + + + + + | Result panel 36 | + + + + + + + + + | Crystals | 2025-04-12 | | NONE SEEN | (missing) | (missing) | | UrChester Micro | 09:50:07 | [facility] | | | | | | [facility] | | | | + + + + + + + + + | Result panel 37 | + + + + + + + + + | Bacteria | 2025-04-12 | | NONE SEEN | (missing) | (missing) | | #/area UrnS | 09:50:07 | [facility] | | | | | HPF | [facility] | | | | + + + + + + + + + | Result panel 38 | + + + + + + + + + | Casts | 2025-04-12 | | NONE SEEN | (missing) | (missing) | | #/area UrnS | 09:50:07 | [facility] | | | | | BARNEYF | [facility] | | | | + + + + + + + + + | Result panel 39 | + + + + + +------+ + + | Bacteria Ur | 2025-04-12 | | No | (missing) | (missing) | | Cult | 09:50:07 | [facility] | | | | | | [facility] | | | | + + + +------+ + + + + | Result panel 40 | + + + + + + + + + | Urn Spec | 2025-04-12 | | CLEAN CATCH | (missing) | (missing) | | Collect Meth | 09:50:07 | [facility] | | | | | Ur | [facility] | | | | + + + + + + + + + | Result panel 41 | + + + + + +--------+ + + | WBC # Bld | 2025-04-12 | | 7.28 | (missing) | (missing) | | Auto | 10:08:07 | [facility] | | | | | | [facility] | | | | + + + +--------+ + + + + | Result panel 42 | + + + + + +--------+ + + | Lymphocytes | 2025-04-12 | | 18.4 | (missing) | (missing) | | NFr Bld | 10:08:07 | [facility] | | | | | Auto | [facility] | | | | + + + +--------+ + + + + | Result panel 43 | + + + + + +-------+ + + | Globulin | 2025-04-12 | | 3.1 | (missing) | (missing) | | Ser-mCnc | 10:08:07 | [facility] | | | | | | [facility] [place] | | | | + + + +-------+ + + + + | Result panel 44 | + + + + + +--------+ + + | | 2025-04-12 | | 1.23 | (missing) | (missing) | | Albumin/Glob | 10:08:07 | [facility] | | | | | SerPl | [facility] [place] | | | | + + + +--------+ + + + + | Result panel 45 | + + + + + +-------+---------+ + | Bilirub | 2025-04-12 | | 0.3 | mg/dL | (missing) | | SerPl-mCnc | 10:08:07 | [facility] | | | | | | [facility] [place] | | | | + + + +-------+---------+ + + + | Result panel 46 | + + + + + +------+ + + | AST | 2025-04-12 | | 40 | (missing) | (missing) | | SerPl-[facility] | 10:08:07 | [facility] | | | | | | [facility] [place] [facility] | | | | + + + +------+ + + + + | Result panel 47 | + + + + + +------+ + + | ALT | 2025-04-12 | | 98 | (missing) | (missing) | | SerPl-cCnc | 10:08:07 | [facility] | | | | | | [facility] [place] [facility] | | | | + + + +------+ + + + + | Result panel 48 | + + + + + +-------+ + + | ALP | 2025-04-12 | | 120 | (missing) | (missing) | | SerPl-cCnc | 10:08:07 | [facility] | | | | | | [facility] [place] [facility] | | | | + + + +-------+ + + + + | Result panel 49 | + + + + + +------+ + + | Lipase | 2025-04-12 | | 15 | (missing) | (missing) | | SerPl-cCnc | 10:08:07 | [facility] | | | | | | [facility] [place] | | | | + + + +------+ + + + + | Result panel 50 | + + + + + +-------+ + + | Monocytes | 2025-04-12 | | 7.1 | (missing) | (missing) | | NFr Bld Auto | 10:08:07 | [facility] | | | | | | [facility] [place] | | | | + + + +-------+ + + + + | Result panel 51 | + + + + + +-------+ + + | Eosinophil | 2025-04-12 | | 1.9 | (missing) | (missing) | | NFr Bld Auto | 10:08:07 | [facility] | | | | | | [facility] [place] [facility] | | | | + + + +-------+ + + + + | Result panel 52 | + + + + + +-------+ + + | Basophils | 2025-04-12 | | 0.5 | (missing) | (missing) | | NFr Bld Auto | 10:08:07 | [facility] | | | | | | [facility] [place] [facility] | | | | + + + +-------+ + + + + | Result panel 53 | + + + + + +--------+ + + | RBC # Bld | 2025-04-12 | | 4.35 | (missing) | (missing) | | Auto | 10:08:07 | [facility] | | | | | | [facility] [place] | | | | + + + +--------+ + + + + | Result panel 54 | + + + + + +--------+ + + | Hgb | 2025-04-12 | | 13.3 | (missing) | (missing) | | Bld-mCnc | 10:08:07 | [facility] | | | | | | [facility] [place] [facility] | | | | + + + +--------+ + + + + | Result panel 55 | + + + + + +------+---------+ + | Glucose | 2025-04-12 | | 93 | mg/dL | (missing) | | Eduardo-Paula | 10:08:07 | [facility] | | | | | | [facility] | | | | + + + +------+---------+ + + + | Result panel 56 | + + + + + +------+---------+ + | BUN | 2025-04-12 | | 16 | mg/dL | (missing) | | SerPl-mCnc | 10:08:07 | [facility] | | | | | | [facility] [place] | | | | + + + +------+---------+ + + + | Result panel 57 | + + + + + +--------+---------+ + | Creat | 2025-04-12 | | 0.76 | mg/dL | (missing) | | SerPl-mCnc | 10:08:07 | [facility] | | | | | | [facility] [place] | | | | + + + +--------+---------+ + + + | Result panel 58 | + + + + + +------+ + + | eGFRcr | 2025-04-12 | | 92 | (missing) | (missing) | | SerPlBld | 10:08:07 | [facility] | | | | | CKD-EPI 2020 | [facility] [place] [facility] | | | | + + + +------+ + + + + | Result panel 59 | + + + + + +---------+ + + | BUN/Creat | 2025-04-12 | | 21.05 | (missing) | (missing) | | SerPl | 10:08:07 | [facility] | | | | | | [facility] [place] [facility] | | | | + + + +---------+ + + + + | Result panel 60 | + + + + + +-------+ + + | Sodium | 2025-04-12 | | 139 | (missing) | (missing) | | SerPl-sCnc | 10:08:07 | [facility] | | | | | | [facility] [place] [facility] | | | | + + + +-------+ + + + + | Result panel 61 | + + + + + +--------+ + + | Hct VFr.DF | 2025-04-12 | | 39.2 | (missing) | (missing) | | Bld Auto | 10:08:07 | [facility] | | | | | | [facility] [place] | | | | + + + +--------+ + + + + | Result panel 62 | + + + + + +-------+ + + | Potassium | 2025-04-12 | | 3.9 | (missing) | (missing) | | SerPl-sCnc | 10:08:07 | [facility] | | | | | | [facility] [place] [facility] | | | | + + + +-------+ + + + + | Result panel 63 | + + + + + +-------+ + + | Chloride | 2025-04-12 | | 104 | (missing) | (missing) | | SerPl-sCnc | 10:08:07 | [facility] | | | | | | [facility] [place] [facility] | | | | + + + +-------+ + + + + | Result panel 64 | + + + + + +------+ + + | CO2 | 2025-04-12 | | 30 | (missing) | (missing) | | Ser[facility] | 10:08:07 | [facility] | | | | | | [facility] [place] [facility] | | | | + + + +------+ + + + + | Result panel 65 | + + + + + +-------+ + + | Anion Gap | 2025-04-12 | | 8.9 | (missing) | (missing) | | SerPl | 10:08:07 | [facility] | | | | | Calculated.4 | | [facility] | | | | Ions-sCnc | | [place] [facility] | | | | + + + +-------+ + + + + | Result panel 66 | + + + + + +-------+---------+ + | Calcium | 2025-04-12 | | 9.2 | mg/dL | (missing) | | SerPl-mCnc | 10:08:07 | [facility] | | | | | | [facility] | | | | + + + +-------+---------+ + + + | Result panel 67 | + + + + + +-------+ + + | Prot | 2025-04-12 | | 6.9 | (missing) | (missing) | | SerPl-mCmckenna | 10:08:07 | [facility] | | | | | | [facility] [place] | | | | + + + +-------+ + + + + | Result panel 68 | + + + + + +-------+ + + | Albumin | 2025-04-12 | | 3.8 | (missing) | (missing) | | SerPl-mCnc | 10:08:07 | [facility] | | | | | | [facility] [place] [facility] | | | | + + + +-------+ + + + + | Result panel 69 | + + + + + +-------+ + + | Globulin | 2025-04-12 | | 3.1 | (missing) | (missing) | | Ser-mCnc | 10:08:07 | [facility] | | | | | | [facility] [place] [facility] | | | | + + + +-------+ + + + + | Result panel 70 | + + + + + +--------+ + + | | 2025-04-12 | | 1.23 | (missing) | (missing) | | Albumin/Glob | 10:08:07 | [facility] | | | | | SerPl | [facility] [place] [facility] | | | | + + + +--------+ + + + + | Result panel 71 | + + + + + +-------+---------+ + | Bilirub | 2025-04-12 | | 0.3 | mg/dL | (missing) | | SerPl-mCnc | 10:08:07 | [facility] | | | [facility] [place] [facility] | | | | + + + +-------+---------+ + + + | Result panel 72 | + + + + + +--------+ + + | RBC Auto | 2025-04-12 | | 90.1 | (missing) | (missing) | | | 10:08:07 | [facility] | | | | | [facility] [place] [facility] | | | | + + + +--------+ + + + + | Result panel 73 | + + + + + +------+ + + | AST | 2025-04-12 | | 40 | (missing) | (missing) | | [facility] | 10:08:07 | [facility] | | | [facility] [place] [facility] | | | | + + + +------+ + + + + | Result panel 74 | + + + + + +------+ + + | ALT | 2025-04-12 | | 98 | (missing) | (missing) | | SerPl-cCnc | 10:08:07 | [facility] | | | | | [facility] [place] [facility] | | | | + + + +------+ + + + + | Result panel 75 | + + + + + +-------+ + + | ALP | 2025-04-12 | | 120 | (missing) | (missing) | | SerPl-cCnc | 10:08:07 | [facility] | | | | | | [facility] [place] [facility] | | | | + + + +-------+ + + + + | Result panel 76 | + + + + + +------+ + + | Lipase | 2025-04-12 | | 15 | (missing) | (missing) | | SerPl-cCnc | 10:08:07 | [facility] [place] [facility] | | | | + + + +------+ + + + + | Result panel 77 | + + + + + +--------+ + + | WBC # Bld | 2025-04-12 | | 7.28 | (missing) | (missing) | | Auto | 10:08:07 | [facility] [place] [facility] | | | | + + + +--------+ + + + + | Result panel 78 | + + + + + +--------+ + + | RBC # Bld | 2025-04-12 | | 4.35 | (missing) | (missing) | | Auto | 10:08:07 | [facility] | | | | | | | - | | | | | | | [place] [facility] | | | | + + + +--------+ + + + + | Result panel 79 | + + + + + +--------+ + + | Hgb | 2025-04-12 | | 13.3 | (missing) | (missing) | | Bld-mCnc | 10:08:07 | [facility] [place] [facility] | | | | + + + +--------+ + + + + | Result panel 80 | + + + + + +--------+ + + | Hct VFr.DF | 2025-04-12 | | 39.2 | (missing) | (missing) | | Bld Auto | 10:08:07 | [facility] [place] [facility] | | | | + + + +--------+ + + + + | Result panel 81 | + + + + + +--------+ + + | RBC Auto | 2025-04-12 | | 90.1 | (missing) | (missing) | | | 10:08:07 | [facility] [place] [facility] | | | | + + + +--------+ + + + + | Result panel 82 | + + + + + +--------+ + + | MCH RBC Qn | 2025-04-12 | | 30.6 | (missing) | (missing) | | Auto | 10:08:07 | [facility] [place] [facility] | | | | + + + +--------+ + + + + | Result panel 83 | + + + + + +--------+ + + | MCH RBC Qn | 2025-04-12 | | 30.6 | (missing) | (missing) | | Auto | 10:08:07 | [facility] [place] [facility] | | | | + + + +--------+ + + + + | Result panel 84 | + + + + + +--------+ + + | MCHC RBC | 2025-04-12 | | 33.9 | (missing) | (missing) | | Auto-EntMCnc | 10:08:07 | [facility] [place] [facility] | | | | + + + +--------+ + + + + | Result panel 85 | + + + + + +-------+ + + | Platelet # | 2025-04-12 | | 294 | (missing) | (missing) | | Bld Auto | 10:08:07 | [facility] [place] [facility] | | | | + + + +-------+ + + + + | Result panel 86 | + + + + + +--------+ + + | Neutrophils | 2025-04-12 | | 71.8 | (missing) | (missing) | | NFr Bld | 10:08:07 | [facility] | | | | | [facility] | [facility] [place] [facility] | | | | + + + +--------+ + + + + | Result panel 87 | + + + + + +--------+ + + | Lymphocytes | 2025-04-12 | | 18.4 | (missing) | (missing) | | NFr Bld | 10:08:07 | [facility] | | | [facility] [place] [facility] | | | | + + + +--------+ + + + + | Result panel 88 | + + + + + +-------+ + + | Monocytes | 2025-04-12 | | 7.1 | (missing) | (missing) | | NFr Bld Auto | 10:08:07 | [facility] | | | | | | | [facility] | | | | + + + +-------+ + + + + | Result panel 89 | + + + + + +-------+ + + | Eosinophil | 2025-04-12 | | 1.9 | (missing) | (missing) | | NFr Bld Auto | 10:08:07 | [facility] | | | | + + + +-------+ + + + + | Result panel 90 | + + + + + +-------+ + + | Basophils | 2025-04-12 | | 0.5 | (missing) | (missing) | | NFr Bld Auto | 10:08:07 | [facility] | [facility] | [facility] [place] [facility] | | | | + + + +-------+ + + + + | Result panel 91 | + + + + + +--------+ + + | MCHC RBC | 2025-04-12 | | 33.9 | (missing) | (missing) | | Auto-EntMCnc | 10:08:07 | [facility] | [facility] [place] [facility] | | | | + + + +--------+ + + + + | Result panel 92 | + + + + + +-------+ + + | Platelet # | 2025-04-12 | | 294 | (missing) | (missing) | | Bld Auto | 10:08:07 | [facility] | | | | | | | - | | | | | | | [facility] | | | | + + + +-------+ + + + + | Result panel 93 | + + + + + +------+---------+ + | Glucose | 2025-04-12 | | 93 | mg/dL | (missing) | | SerPl-mCnc | 10:08:07 | [facility] [place] [facility] | | | | + + + +------+---------+ + + + | Result panel 94 | + + + + + +------+---------+ + | BUN | 2025-04-12 | | 16 | mg/dL | (missing) | | [facility] | 10:08:07 | [facility] | | | [facility] [place] [facility] | | | | + + + +------+---------+ + + + | Result panel 95 | + + + + + +--------+---------+ + | Creat | 2025-04-12 | | 0.76 | mg/dL | (missing) | | [facility] | 10:08:07 | [facility] [place] [facility] | | | | + + + +--------+---------+ + + + | Result panel 96 | + + + + + +--------+ + + | Neutrophils | 2025-04-12 | | 71.8 | (missing) | (missing) | | NFr Bld | 10:08:07 | [facility] | | | | | Auto | [facility] [place] [facility] | | | | + + + +--------+ + + + + | Result panel 97 | + + + + + +------+ + + | eGFRcr | 2025-04-12 | | 92 | (missing) | (missing) | | SerPlBld | 10:08:07 | [facility] | | | | | CKD-EPI 2020 | [facility] [place] [facility] | | | | + + + +------+ + + + + | Result panel 98 | + + + + + +---------+ + + | BUN/Creat | 2025-04-12 | | 21.05 | (missing) | (missing) | | SerPl | 10:08:07 | [facility] | | [facility] [place] [facility] | | | | + + + +---------+ + + + + | Result panel 99 | + + + + + +-------+ + + | Sodium | 2025-04-12 | | 139 | (missing) | (missing) | | SerPl-sCnc | 10:08:07 | [facility] | | | | [facility] [place] [facility] | | | | + + + +-------+ + + + + | Result panel 100 | + + + + + +-------+ + + | Potassium | 2025-04-12 | | 3.9 | (missing) | (missing) | | [facility] | 10:08:07 | [facility] | | [facility] [place] [facility] | | | | + + + +-------+ + + + + | Result panel 101 | + + + + + +-------+ + + | Chloride | 2025-04-12 | | 104 | (missing) | (missing) | | SerPl-s[facility]nc | 10:08:07 | [facility] | | [facility] [place] [facility] | | | | + + + +-------+ + + + + | Result panel 102 | + + + + + +------+ + + | CO2 | 2025-04-12 | | 30 | (missing) | (missing) | | SerPl-s[facility]nc | 10:08:07 | [facility] | | | [facility] [place] [facility] | | | | + + + +------+ + + + + | Result panel 103 | + + + + + +-------+ + + | Anion Gap | 2025-04-12 | | 8.9 | (missing) | (missing) | | SerPl | 10:08:07 | [facility] | | | | | Calculated.4 | [facility] | [place] [facility] | | | | + + + +-------+ + + + + | Result panel 104 | + + + + + +-------+---------+ + | Calcium | 2025-04-12 | | 9.2 | mg/dL | (missing) | | SerPl-m[facility]nc | 10:08:07 | [facility] | | | [facility] [place] [facility] | | | | + + + +-------+---------+ + + + | Result panel 105 | + + + + + +-------+ + + | Prot | 2025-04-12 | | 6.9 | (missing) | (missing) | | SerPl-m[facility]nc | 10:08:07 | [facility] [place] [facility] | | | | + + + +-------+ + + + + | Result panel 106 | + + + + + +-------+ + + | Albumin | 2025-04-12 | | 3.8 | (missing) | (missing) | | SerPl-m[facility]nc | 10:08:07 | [facility] [place] [facility] | | | | + + + +-------+ + + Social History +--------+ + + | date | description | facility | +--------+ + + Vital Signs + + + +---------+ | date | measurement | value | units | + + + +---------+ | 2025-03-04 00:00 | BMI | 29.0 | kg/m2 | + + + +---------+ | 2025-03-04 00:00 | height_metric | 170.18 | cm | + + + +---------+ | 2025-03-04 00:00 | height_standard | 67 | in | + + + +---------+ | 2025-03-04 00:00 | weight_metric | 84 | kg | + + + +---------+ | 2025-03-04 00:00 | weight_standard | 185.19 | lb | + + + +---------+ | 2025-03-08 00:00 | BP_diastolic | 85 | mmHg | + + + +---------+ | 2025-03-08 00:00 | BP_systolic | 128 | mmHg | + + + +---------+ | 2025-03-08 00:00 | heart_rate | 75 | /min | + + + +---------+ | 2025-03-08 00:00 | o2_saturation | 100 | % | + + + +---------+ | 2025-03-08 00:00 | respiration_rate | 14 | /min | + + + +---------+ | 2025-03-08 00:00 | temperature_metric | 36.39 | C | | | | | | + + + +---------+ | 2025-03-08 00:00 | | 97.5 | F | | | temperature_standar | | | | | d | | | + + + +---------+ | 2025-04-09 00:00 | BMI | 29.3 | kg/m2 | + + + +---------+ | 2025-04-09 00:00 | height_metric | 170.18 | cm | + + + +---------+ | 2025-04-09 00:00 | height_standard | 67 | in | + + + +---------+ | 2025-04-09 00:00 | weight_metric | 85 | kg | + + + +---------+ | 2025-04-09 00:00 | weight_standard | 187.393 | lb | + + + +---------+ | 2025-04-10 00:00 | BP_diastolic | 66 | mmHg | + + + +---------+ | 2025-04-10 00:00 | BP_systolic | 131 | mmHg | + + + +---------+ | 2025-04-10 00:00 | heart_rate | 71 | /min | + + + +---------+ | 2025-04-10 00:00 | o2_saturation | 100 | % | + + + +---------+ | 2025-04-10 00:00 | respiration_rate | 14 | /min | + + + +---------+ | 2025-04-10 00:00 | | 98.9 | F | | | temperature_standar | | | | | d | | | + + + +---------+ | 2025-04-12 00:00 | BMI | 29.3 | kg/m2 | + + + +---------+ | 2025-04-12 00:00 | BP_diastolic | 88 | mmHg | + + + +---------+ | 2025-04-12 00:00 | BP_systolic | 135 | mmHg | + + + +---------+ | 2025-04-12 00:00 | heart_rate | 77 | /min | + + + +---------+ | 2025-04-12 00:00 | height_metric | 170.18 | cm | + + + +---------+ | 2025-04-12 00:00 | height_standard | 67 | in | + + + +---------+ | 2025-04-12 00:00 | o2_saturation | 99 | % | + + + +---------+ | 2025-04-12 00:00 | respiration_rate | 21 | /min | + + + +---------+ | 2025-04-12 00:00 | | 36.9 | F | | | temperature_standar | | | | | d | | | + + + +---------+ | 2025-04-12 00:00 | weight_metric | 85 | kg | + + + +---------+ | 2025-04-12 00:00 | weight_standard | 187.393 | lb | + + + +---------+ | 2025-04-17 00:00 | BMI | 29.3 | kg/m2 | + + + +---------+ | 2025-04-17 00:00 | height_metric | 170.18 | cm | + + + +---------+ | 2025-04-17 00:00 | height_standard | 67 | in | + + + +---------+ | 2025-04-17 00:00 | weight_metric | 85 | kg | + + + +---------+ | 2025-04-17 00:00 | weight_standard | 187.393 | lb | + + + +---------+ | 2025-04-25 00:00 | BP_diastolic | 69 | mmHg | + + + +---------+ | 2025-04-25 00:00 | BP_systolic | 111 | mmHg | + + + +---------+ | 2025-04-25 00:00 | heart_rate | 93 | /min | + + + +---------+ | 2025-04-25 00:00 | o2_saturation | 99 | % | + + + +---------+ | 2025-04-25 00:00 | respiration_rate | 18 | /min | + + + +---------+ | 2025-04-25 00:00 | | 97.1 | F | | | temperature_standar | | | | | d | | | + + + +---------+"
[~2025-05-17 14:19] MED LIST changes: -LACTATED RINGER'S 1,000 ML IV SCH; +VITAMIN B121000 MCG PO
--- OUTSIDE RECORDS SUMMARY | 2025-05-17 14:25 | XMS ---
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 ESen VISIT COUNT (12 MO.) 4 MANA [facility]ias TOTAL 4 NOTE: Visits indicate total known visits. ED/UCC VISIT TRACKING (12 MO.) 05/17/2025 14:19 [facility] TYPE: Emergency COMPLAINT: - POST OP PROOBLEM 04/12/2025 08:37 [facility] TYPE: Emergency COMPLAINT: - ABDOMINAL PAIN DIAGNOSES: - Allergy status to narcotic agent - Allergy to other foods - Left lower quadrant pain - remote computer terminal operator (current) use of systemic steroids - Other intermediate manager (current) drug therapy 04/09/2025 06:58 [facility] TYPE: Emergency COMPLAINT: - ABDOMINAL PAIN DIAGNOSES: - Acquired absence of both cervix and uterus - Allergy status to narcotic agent - Allergy to other foods - Left lower quadrant pain - Other correction (current) drug therapy - Unspecified asthma, uncomplicated 02/02/2025 15:20 [facility] TYPE: Emergency COMPLAINT: - ABDOMINAL PAIN DIAGNOSES: - Allergy status to narcotic agent - Allergy to other foods - Other intermediate manager (current) drug therapy - Other specified diseases of intestine - Unspecified abdominal pain - Unspecified asthma, uncomplicated INPATIENT VISIT TRACKING (12 MO.) No inpatient visits to display in this time frame [email or web address]
[2025-05-17] MEDS ORDERED: SODIUM CHLORIDE 0.9% 500 ML IV PRN (15:30)
[2025-05-17] MEDS ORDERED: HYDROmorphone HCL 1 MG/ML SYR IV PRN (15:30)
[2025-05-17 15:38] LABS: BLOOD/HGB, URINE NEGATIVE (Negative); KETONE, URINE NEGATIVE (Negative); LEUK ESTERASE, URINE NEGATIVE (negative); NITRITE, URINE NEGATIVE (negative)
[2025-05-17 15:56] LABS: BASOPHILS 0.5 % (0.1-1.2); EOSINOPHILS 2.8 % (0.7-5.8); LYMPHOCYTES 25.9 % (19.3-51.7); MCH 29.7 PG (25.6-32.2); MCHC 32.8 g/dL (32.2-35.5); MCV 90.6 fL (79.4-94.8); MONOCYTES 6.9 % (4.7-12.5); NEUTROPHILS 63.6 % (34.0-71.1); RBC 4.37 M/uL (3.93-5.22)
[2025-05-17 16:11] LABS: ALT (SGPT) 65.0 U/L (14-59); AST (SGOT) 28.0 U/L (15-37); GLOMERULAR FILTRATION RATE,EST 103.0 mL/min (>60); PROTEIN, TOTAL 6.7 g/dL (6.4-8.2); UREA NITROGEN 13.0 mg/dL (7-18)
[2025-05-17] MEDS ORDERED: AMOXICILLIN/CLAVULANATE K 875 MG TAB PO ONE (17:45)
[2025-05-17] MEDS ORDERED: HYDROCODONE/ACETA 7.5/325 TAB PO ONE (17:45)
[2025-05-17] MEDS ORDERED: AMOX TR-K CLV1 EAC1 PO (17:46)
[2025-05-17] MEDS ORDERED: HYDROCODON-ACE1 EA10 PO (17:48)
[2025-05-17] MEDS ORDERED: ONDANSETRON ODT8 MG PO (17:48)
[2025-05-17 18:00] VITALS: BP 127/81
== END 2025-05-17 18:00 | disposition home or self-care (01) ==
LOC: ED 14:19
PROVIDERS: Emergency Medicine
DX: K57.32 Diverticulitis of large intestine without perforation or abscess without bleeding (principal); Z98.890 Other specified postprocedural states; Z91.018 Allergy to other foods; Z88.5 Allergy status to narcotic agent
CPT/HCPCS: 36415; 74177; 80053; 81003; 83690; 85025; 96374; 96375; 96376; 99284-25; A9270; J1171; J2405; J7040; Q9967